=== PATIENT | male | born 1980 | race Caucasian/White ===

== ENCOUNTER 2020-11-25 17:25 | Inpatient (IN) | payer MEDICAID, SELFPAY ==
--- NOTE | 2020-11-25 | ECG_ITS ---
Test Reason : WEAKNESS Blood Pressure : / mmHG Vent. Rate : 095 BPM Atrial Rate : 095 BPM P-R Int : 156 ms QRS Dur : 094 ms QT Int : 348 ms P-R-T Axes : 065 -07 059 degrees QTc Int : 437 ms Normal sinus rhythm Moderate voltage criteria for LVH, may be normal variant Borderline ECG No previous ECGs available Referred By: Lis Thurman Electronically Signed By:MELANIE CLOUD MD
--- NOTE | ~2020-11-25 | CT_ITS ---
EXAM: Noncontrast CT scan of the head and cervical spine. INDICATION: Trauma COMPARISON: None TECHNIQUE: Axial slices were obtained from skull base to vertex and displayed. This was followed by helical, multislice, multidetector axial images from the occiput to the upper thorax. Coronal and sagittal reformats of the cervical spine in addition to coronal reformats of the head were obtained at the technologist workstation. DLP: 1103 mGy-cm FINDINGS: HEAD: There is no evidence of acute intracranial hemorrhage or territorial infarction. No abnormal mass effect or midline shift is appreciated. Torres-white differentiation is well preserved. No extra-axial fluid collections. The ventricular system and cortical sulci are normal in size. The osseous structures and soft tissues are normal. The visualized paranasal sinuses and mastoid air cells are well aerated. SPINE: The cervical spine is visualized in its entirety. There is straightening of the normal cervical lordosis. Alignment is otherwise unremarkable. Vertebral body heights are maintained. There is near complete osseous fusion of the C4 and C5 vertebral bodies. Disc spaces are otherwise well-maintained throughout the cervical spine. No prevertebral soft tissue swelling. CT/CT head/brain wo con IMPRESSION: 1. No acute intracranial pathology. 2. No fractures or dislocations of the cervical spine. This CT examination was performed using dose optimization techniques as appropriate, variously including the following: *Automated exposure control *Adjustment of mA and/or kV according to patient size (this includes techniques or standardized protocols for targeted exams where dose is matched to indication/reason for exam; i.e. extremities or head) *Use of iterative reconstruction technique
--- NOTE | ~2020-11-25 | US_ITS ---
EXAMINATION: ABDOMINAL DOPPLER EXAM CLINICAL INFORMATION: Abnormal liver function tests COMPARISON: Previous abdominal ultrasound from yesterday TECHNIQUE: Doppler color and grayscale evaluation of the liver vasculature FINDINGS: The main, right and left portal veins are patent. There is hepatofugal flow. The extrahepatic portal vein is not visualized. The splenic vein is patent. There is a large recanalized paraumbilical vein. The right, middle and left hepatic veins are patent and demonstrate normal waveforms. The IVC is patent. The main, right left hepatic arteries are patent. Main hepatic artery peak systolic velocity measures 249 cm/s which is slightly elevated. There is a small amount of ascites. The spleen is slightly enlarged measuring 13.2 cm in length. US/US duplex arterial venous comp IMPRESSION: Hepatofugal flow seen in the portal vein and large recanalized paraumbilical vein. The hepatic veins are patent.
--- NOTE | ~2020-11-25 | CT_ITS ---
EXAM: Noncontrast CT scan of the head and cervical spine. INDICATION: Trauma COMPARISON: None TECHNIQUE: Axial slices were obtained from skull base to vertex and displayed. This was followed by helical, multislice, multidetector axial images from the occiput to the upper thorax. Coronal and sagittal reformats of the cervical spine in addition to coronal reformats of the head were obtained at the technologist workstation. DLP: 1103 mGy-cm FINDINGS: HEAD: There is no evidence of acute intracranial hemorrhage or territorial infarction. No abnormal mass effect or midline shift is appreciated. Torres-white differentiation is well preserved. No extra-axial fluid collections. The ventricular system and cortical sulci are normal in size. The osseous structures and soft tissues are normal. The visualized paranasal sinuses and mastoid air cells are well aerated. SPINE: The cervical spine is visualized in its entirety. There is straightening of the normal cervical lordosis. Alignment is otherwise unremarkable. Vertebral body heights are maintained. There is near complete osseous fusion of the C4 and C5 vertebral bodies. Disc spaces are otherwise well-maintained throughout the cervical spine. No prevertebral soft tissue swelling. CT/CT cervical spine wo con IMPRESSION: 1. No acute intracranial pathology. 2. No fractures or dislocations of the cervical spine. This CT examination was performed using dose optimization techniques as appropriate, variously including the following: *Automated exposure control *Adjustment of mA and/or kV according to patient size (this includes techniques or standardized protocols for targeted exams where dose is matched to indication/reason for exam; i.e. extremities or head) *Use of iterative reconstruction technique
--- NOTE | ~2020-11-25 | US_ITS ---
EXAMINATION: US ABDOMEN COMPLETE CLINICAL INFORMATION: Liver failure. COMPARISON: Previous abdominal ultrasound November 2012 TECHNIQUE: Real-time imaging of the abdominal viscera. FINDINGS: PANCREAS: Not well visualized due to bowel gas. ABDOMINAL AORTA: The proximal, mid, and distal segments are normal in caliber. INFERIOR VENA CAVA: Visualized portions are normal. LIVER: Liver echotexture is increased and heterogeneous suggestive of hepatocellular disease. The contour of the liver is irregular or scalloped suggestive of cirrhosis.. No focal hepatic lesion. There is no intrahepatic biliary duct dilatation seen. There is reversed hepatofugal flow seen in the main portal vein and recanalized paraumbilical vein. GALLBLADDER: There are gallstones and sludge in the gallbladder. The gallbladder is normal in size. The gallbladder wall does not appear thickened. COMMON BILE DUCT: Normal in caliber measuring 0.7 cm in diameter. RIGHT KIDNEY: Normal. No hydronephrosis. No renal calculi or focal parenchymal lesions. The kidney measures 11.6 cm in maximum dimension. LEFT KIDNEY: Normal. No hydronephrosis. No renal calculi or focal parenchymal lesions. The kidney measures 13.2 cm in maximum dimension. SPLEEN: Slightly enlarged. The spleen measures 13.7 cm in maximum dimension. FREE FLUID: There is a moderate amount of ascites. US/US abdomen complete IMPRESSION: Cirrhotic-appearing liver. Reversed hepatofugal flow in the main portal vein. Mild splenomegaly. Moderate amount of ascites. Gallstones and sludge in the gallbladder. Nonvisualization of the pancreas.
--- NOTE | ~2020-11-25 | US_ITS ---
EXAMINATION: ULTRASOUND-GUIDED PARACENTESIS CLINICAL INFORMATION: Ascites COMPARISON: Previous ultrasound from earlier the same day TECHNIQUE: Procedure and received benefits including bleeding, infection and low blood pressure were discussed with the patient's mother by telephone and informed consent was obtained. The right lower quadrant was prepped and draped in the usual sterile fashion. The skin and soft tissues were anesthetized with 1% lidocaine plain. Using ultrasound guidance and a 5 Arabic rapid centesis catheter, access to the ascitic fluid was obtained. 2.3 L of dark clear yellow fluid was removed. Diagnostic specimen was sent. FINDINGS: There is a moderate amount of ascites. US/US paracentesis abd w/image IMPRESSION: Ultrasound-guided paracentesis.
[2020-11-25 17:54] VITALS: BP 165/79; PULSE 108; RESP 16; TEMP 36.8; O2SAT 95; BMI 26.6
[2020-11-25 21:55] VITALS: BP 140/94; PULSE 100; RESP 18; O2SAT 98
[2020-11-25 22:05] LABS: Basophils Percent Auto 0.5 % (0-2); Mean Corpuscular Volume 96.9 fL (80-98); Mean Platelet Volume 10.2 fL (9.4-12.4); PLT CLUMP 1; Red Cell Distribution Width 17.1 % (11.0-16.0); SCAN SMEAR FLAG 1
--- NOTE | 2020-11-25 22:05 | PC.NURSE ---
Pt from home, CAOx4, speaking full sentences. Pt reports a history of alcoholic cirrhosis, denies taking any prescription medications. Pt noted to be extremely jaundice to sclera and full body. Pt reports a fall @ home two weeks ago, states he fell out of bed in his sleep. Pt reports increased jaundice noted to eyes and full body x 2 weeks, pt also reports increased swelling to abdomen and legs, denies history of ascites or having abdomen drained. Pt reporting feeling foggy. States he is unable to get his thoughts out or speak clearly. Pt also reporting difficulty ambulating, states he has been unsteady on his feet. Pt reporting bright red blood in stool and blood in urine x 1 week, denies clots. Pt reports a history of ETOH, states he doesn't drink every day but had 3 drinks after lunch today. IV established, all labs obtained including BCXx2/lactic and Covid swab. EKG obtained by this RN. VSS at this time, awaiting primary MD solano. Call woods within reach, continue to monitor.
[2020-11-25 22:07] LABS: Basophils Absolute Auto 0.1 X10*3/uL (0.0-0.2); Eosinophils Absolute Auto 0.1 X10*3/uL (0.0-0.4); Hematocrit 31.2 % (42-52); Hemoglobin 11.6 g/dl (14.0-18.0); Imm Gran Abs Auto 0.08 X10*3/uL (0.00-0.03); Imm Gran Pct Auto 0.7 % (0.0-0.4); Lymphocytes Absolute Auto 1.7 X10*3/uL (1.2-4.9); Lymphocytes Percent Auto 14.9 % (20-40); Mean Corpuscular HGB Conc 37.2 g/dl (31.0-36.0); Monocytes Absolute Auto 1.4 X10*3/uL (0.1-1.2); Monocytes Percent Auto 12.4 % (2-11); Neutrophils Absolute Auto 7.8 X10*3/uL (2.0-8.3); Neutrophils Percent Auto 70.5 % (45-73); Platelet Count 119 X10*3/uL (160-400); Red Blood Count 3.22 X10*6/uL (4.60-5.80); White Blood Count 11.1 X10*3/uL (4.8-10.8)
[2020-11-25 22:08] LABS: MANUAL DIFF FLAG NO
[2020-11-25 22:23] LABS: Lactic Acid 1.5 mmol/L (0.5-2.0)
[2020-11-25 22:24] LABS: Alanine Aminotransferase 44 U/L (0-40); Albumin Level 2.5 g/dL (3.5-5.0); Alkaline Phosphatase 201 U/L (39-117); Anion Gap 14 (12-20); Aspartate Amino Transferase 167 U/L (5-37); Blood Urea Nitrogen 7 mg/dL (9-16); Calcium 7.9 mg/dL (8.4-10.2); Carbon Dioxide 22 mmol/L (22-29); Chloride 89 mmol/L (96-108); Creatinine Clr Calc Pharmacy 105.2; Estimated Glomerular Filt Rate > 60; Glucose Random 98 mg/dL (60-115); Potassium 3.3 mmol/L (3.3-5.1); Sodium 122 mmol/L (135-145); Total Protein 7.6 g/dL (6.5-8.0)
[2020-11-25 22:32] LABS: Ethanol 31 mg/dL
[2020-11-25 22:39] LABS: INTERNATIONAL NORM RATIO 2.1 (0.9-1.1); Prothrombin Time 24.9 SEC (10.8-13.0)
--- NOTE | 2020-11-25 22:40 | PC.NURSE ---
at bedside for primary eval.
--- NOTE | 2020-11-25 22:46 | PC.NURSE ---
OBS obtained by and sent by this RN. Pt aware of plan to admit to facility. Awaiting CT.
[2020-11-25 22:47] LABS: Ammonia 66 umol/L (13-55); Bilirubin Direct 19.4 mg/dL (0.0-0.5); Bilirubin Total 31.2 mg/dL (0.0-1.0)
--- NOTE | 2020-11-25 22:51 | ED_ITS ---
HPI - General Adult General Chief complaint: General Medical Stated complaint: mutiple complaints Time Seen by Provider: 11/25/20 21:56 History of Present Illness HPI narrative: Patient is a 40-year-old male with a long history of alcohol abuse. Noticed himself to be generally weaker than usual. Patient feels lightheaded. Patient may have fallen. Patient drinks on a daily basis. No history of hepatitis. No history of Tylenol ingestion. Noticed himself to be yellowed. Also noticed himself to be weak. Noticed his legs to be swollen. Noticed his abdomen to be distended. Came to the emergency department is currently tolerating p.o.. No dominant surgery in the past. No cough no congestion or upper respiratory symptoms. No diaphoresis. Related Data Home Medications Medication Instructions Recorded Confirmed No Known Home Meds 11/25/20 11/25/20 Allergies Allergy/AdvReac Type Severity Reaction Status Date / Time Penicillins Allergy Swelling Verified 11/25/20 17:54 Review of Systems Review of Systems: Constitutional: No Weight loss, No Fever, No Chills, No Night Sweats, No Fatigue, No Malaise ENT/Mouth: No Hearing loss, No Ear Pain, No Nasal Congestion, No Sinus Pain, No Hoarseness, No sore throat, No Rhinorrhea, No Swallowing Difficulty Eyes: No Eye Pain, No Swelling, No Redness, No Foreign Body, No Discharge, No Vision Changes Cardiovascular: No Chest Pain, No SOB, No Dyspnea on Exertion, No Orthopnea, No Edema, No Palpitations Respiratory: No Cough, No Sputum, No Wheezing, No Smoke Exposure, No Dyspnea Gastrointestinal: No Nausea, No Vomiting, No Diarrhea, No Constipation, No abdominal Pain, No Hematochezia, No Melena Genitourinary: no irregular bleeding, No Dysuria, No Urinary Frequency, No Hematuria, No Urinary Incontinence, No Urgency, No Flank Pain, No Urinary Flow Changes, No Hesitancy Musculoskeletal: No joint pain, No Myalgias, No Joint Swelling Skin: Positive yellow skin Neuro: Positive Weakness, No Numbness, No Paresthesias, No Loss of Conscious ness, positive Dizziness, No Headache Psych: No Anxiety/Panic, No Depression, No SI/HI/AH/VH, No Social Issues, Heme/Lymph: No Bruising, No Bleeding,No Lymphadenopathy Endocrine: No Polyuria, No Polydipsia, No Temperature Intolerance [facility] Past Medical History Medical History Liver cirrhosis Social History Social History Advance Directives: No Advance Directives Information Provided: Yes Physical Exam Vital Signs: Vital Signs: Last Vital Signs Temp 98.2 F 11/25/20 17:54 Pulse 89 11/26/20 00:31 Resp 16 11/26/20 00:31 BP 130/73 11/26/20 00:31 Pulse Ox 96 11/26/20 00:31 Body Mass Index 26.6 Appearance: Alert. Oriented X3. No acute distress. Eyes: Pupils equal, round and reactive to light. Positive jaundice noted ENT: Pharynx normal. Neck: Normal inspection. Neck supple. No lymph nodes noted. No crepitus CVS: Normal heart rate and rhythm. Pulses normal. Normal S1 and S2 Respiratory: No respiratory distress. Breath sounds normal. No Wheezing. No rales Abdomen: Distended abdomen. Nontender to touch, positive bowel sounds in all 4 quadrants Skin: Positive jaundice noted Extremities: Positive lower extremity edema. Neurovascular intact to all extremities. No Lacerations. No Rash Neuro: Oriented X 3. No motor deficit. No sensory deficit. Moving all extermities. No slurred speech Medical Decision Making MDM Narrative Medical decision making narrative: Patient appears to have gross liver failure likely secondary to alcohol abuse. Will get CT scan of the head as patient qu estionably hit his head last week. Will check Tylenol and also hepatitis panel. Will require admission for further evaluation for likely liver failure. Currently in stable condition. Patient's bilirubin came back to be 30 pulmonary hepatic failure. Likely related to alcohol. Tylenol levels negative hepatitis panel is pending. Will require admission to the hospital. Will discuss case with GI. Case discussed with GI agree with plan of admission. Currently in stable condition. Lab Data Result diagrams: 11/25/20 21:52 11/25/20 21:52 Labs: Lab Results 11/25/20 11/25/20 11/25/20 Range/Units 21:52 21:52 21:52 WBC 11.1 H (4.8-10.8) X10*3/uL RBC 3.22 L (4.60-5.80) X10*6/uL Hgb 11.6 L (14.0-18.0) g/dl Hct 31.2 L (42-52) % MCV 96.9 (80-98) fL MCH 36.0 H (27.0-33.0) pg MCHC 37.2 H (31.0-36.0) g/dl RDW 17.1 H (11.0-16.0) % Plt Count 119 L (160-400) X10*3/uL MPV 10.2 (9.4-12.4) fL Immature Gran % (Auto) 0.7 H (0.0-0.4) % Neut % (Auto) 70.5 (45-73) % Lymph % (Auto) 14.9 L (20-40) % Chester % (Auto) 12.4 H (2-11) % Eos % (Auto) 1.0 (0-4) % Baso % (Auto) 0.5 (0-2) % Lymph # (Auto) 1.7 (1.2-4.9) X10*3/uL Chester # (Auto) 1.4 H (0.1-1.2) X10*3/uL Eos # (Auto) 0.1 (0.0-0.4) X10*3/uL Baso # (Auto) 0.1 (0.0-0.2) X10*3/uL Abs Immat Gran (auto) 0.08 H (0.00-0.03) X10*3/uL Absolute Neuts (auto) 7.8 (2.0-8.3) X10*3/uL Absolute Nucleated RBC 0.000 (0.0-0.012) X10*3/uL Nucleated RBC % (auto) 0.0 (0.0-0.2) /100WBC PT (10.8-13.0) SEC INR (0.9-1.1) Hold Blue Top Sodium (135-145) mmol/L Potassium (3.3-5.1) mmol/L Chloride (96-108) mmol/L Carbon Dioxide (22-29) mmol/L Anion Gap (12-20) BUN (9-16) mg/dL Creatinine (0.5-1.4) mg/dL Estim Creat Clear Calc Estimated GFR Random Glucose (60-115) mg/dL Lactic Acid 1.5 (0.5-2.0) mmol/L Calcium (8.4-10.2) mg/dL Total Bilirubin (0.0-1.0) mg/dL Direct Bilirubin (0.0-0.5) mg/dL AST (5-37) U/L ALT (0-40) U/L Alkaline Phosphatase (39-117) U/L Ammonia 66 H (13-55) umol/L Total Protein (6.5-8.0) g/dL Albumin (3.5-5.0) g/dL Stool Occult Blood (NEGATIVE) Acetaminophen (<30) mcg/mL Ethyl Alcohol mg/dL COVID-19 ([facility]) (Negative) COVID-19 Clin Com 11/25/20 11/25/20 11/25/20 Range/Units 21:52 21:52 21:52 WBC (4.8-10.8) X10*3/uL RBC (4.60-5.80) X10*6/uL Hgb (14.0-18.0) g/dl Hct (42-52) % MCV (80-98) fL MCH (27.0-33.0) pg MCHC (31.0-36.0) g/dl RDW (11.0-16.0) % Plt Count (160-400) X10*3/uL MPV (9.4-12.4) fL Immature Gran % (Auto) (0.0-0.4) % Neut % (Auto) (45-73) % Lymph % (Auto) (20-40) % Chester % (Auto) (2-11) % Eos % (Auto) (0-4) % Baso % (Auto) (0-2) % Lymph # (Auto) (1.2-4.9) X10*3/uL Chester # (Auto) (0.1-1.2) X10*3/uL Eos # (Auto) (0.0-0.4) X10*3/uL Baso # (Auto) (0.0-0.2) X10*3/uL Abs Immat Gran (auto) (0.00-0.03) X10*3/uL Absolute Neuts (auto) (2.0-8.3) X10*3/uL Absolute Nucleated RBC (0.0-0.012) X10*3/uL Nucleated RBC % (auto) (0.0-0.2) /100WBC PT 24.9 H (10.8-13.0) SEC INR 2.1 H (0.9-1.1) Hold Blue Top SEE NOTE Sodium 122 L (135-145) mmol/L Potassium 3.3 (3.3-5.1) mmol/L Chloride 89 L (96-108) mmol/L Carbon Dioxide 22 (22-29) mmol/L Anion Gap 14 (12-20) BUN 7 L (9-16) mg/dL Creatinine 0.89 (0.5-1.4) mg/dL Estim Creat Clear Calc 105.2 Estimated GFR > 60 Random Glucose 98 (60-115) mg/dL Lactic Acid (0.5-2.0) mmol/L Calcium 7.9 L (8.4-10.2) mg/dL Total Bilirubin 31.2 H (0.0-1.0) mg/dL Direct Bilirubin 19.4 H (0.0-0.5) mg/dL AST 167 H (5-37) U/L ALT 44 H (0-40) U/L Alkaline Phosphatase 201 H (39-117) U/L Ammonia (13-55) umol/L Total Protein 7.6 (6.5-8.0) g/dL Albumin 2.5 L (3.5-5.0) g/dL Stool Occult Blood (NEGATIVE) Acetaminophen < 1 (<30) mcg/mL Ethyl Alcohol 31 mg/dL COVID-19 ([facility]) (Negative) COVID-19 Clin Com 11/25/20 11/25/20 Range/Units 22:11 22:46 WBC (4.8-10.8) X10*3/uL RBC (4.60-5.80) X10*6/uL Hgb (14.0-18.0) g/dl Hct (42-52) % MCV (80-98) fL MCH (27.0-33.0) pg MCHC (31.0-36.0) g/dl RDW (11.0-16.0) % Plt Count (160-400) X10*3/uL MPV (9.4-12.4) fL Immature Gran % (Auto) (0.0-0.4) % Neut % (Auto) (45-73) % Lymph % (Auto) (20-40) % Chester % (Auto) (2-11) % Eos % (Auto) (0-4) % Baso % (Auto) (0-2) % Lymph # (Auto) (1.2-4.9) X10*3/uL Chester # (Auto) (0.1-1.2) X10*3/uL Eos # (Auto) (0.0-0.4) X10*3/uL Baso # (Auto) (0.0-0.2) X10*3/uL Abs Immat Gran (auto) (0.00-0.03) X10*3/uL Absolute Neuts (auto) (2.0-8.3) X10*3/uL Absolute Nucleated RBC (0.0-0.012) X10*3/uL Nucleated RBC % (auto) (0.0-0.2) /100WBC PT (10.8-13.0) SEC INR (0.9-1.1) Hold Blue Top Sodium (135-145) mmol/L Potassium (3.3-5.1) mmol/L Chloride (96-108) mmol/L Carbon Dioxide (22-29) mmol/L Anion Gap (12-20) BUN (9-16) mg/dL Creatinine (0.5-1.4) mg/dL Estim Creat Clear Calc Estimated GFR Random Glucose (60-115) mg/dL Lactic Acid (0.5-2.0) mmol/L Calcium (8.4-10.2) mg/dL Total Bilirubin (0.0-1.0) mg/dL Direct Bilirubin (0.0-0.5) mg/dL AST (5-37) U/L ALT (0-40) U/L Alkaline Phosphatase (39-117) U/L Ammonia (13-55) umol/L Total Protein (6.5-8.0) g/dL Albumin (3.5-5.0) g/dL Stool Occult Blood NEGATIVE (NEGATIVE) Acetaminophen (<30) mcg/mL Ethyl Alcohol mg/dL COVID-19 ([facility]) Negative (Negative) COVID-19 Clin Com See Note Critical Care Time Critical Care Time Total Critical Care Time: 40 Attestation: I have personally provided 40 minutes of critical care time exclusive of time spent on separately billable procedures. Time includes review of lab data, radiology results, discussion with consultants, and monitoring for potential decompensation. Interventions were performed as documented above Discharge Plan Discharge Clinical Impression: Acute liver failure Patient Disposition: Admitted As Inpatient
[2020-11-25 23:10] LABS: OBS Int Ctl Valid YES; OBS1 NEGATIVE (NEGATIVE)
[2020-11-25 23:15] LABS: Acetaminophen LAB < 1 mcg/mL (<30)
[2020-11-25 23:21] LABS: COVID-19 Test Negative (Negative)
--- NOTE | 2020-11-25 23:30 | PC.NURSE ---
Pt returns from CT on hospital bed without incident.
[2020-11-26] VITALS (9 sets, daily range): BP systolic 99–142; BP diastolic 60–76; PULSE 75–102; RESP 16–18; TEMP 36.3–37.1; O2SAT 95–100
--- NOTE | 2020-11-26 02:53 | PC.NURSE ---
WORSHIP PASTOR NOTICED INCREASED TREMORS NOTED WHILE BEING MOVED TO COMMODE. [facility] CONTACTED DUE TO CONCERNS ABOUT ETOH WITHDRAWAL. PER HOSPITALIST PLAN TO START PHENOBARBITOL PROTOCOL.
[2020-11-26] MEDS: Lactulose 20 GM/30 ML SOLUTION 30 GM PO ×2 (03:29→08:18)
[2020-11-26] MEDS: PHENobarbitaL sodium 130 MG/ML VIAL 265 MG IM (03:30)
[2020-11-26 04:29] LABS: ~HepC Num1 0.48 S/CO (0.00-0.79); ~Hepatitis C Antibody Nonreactive (Nonreactive)
--- NOTE | 2020-11-26 04:32 | PC.NURSE ---
PT ASSISTED TO BEDSIDE COMMODE, HAS SMALL AMOUNT OF LIQUID BROWN STOOL.
[2020-11-26 04:36] LABS: HBS Num1 301.01 mIU/mL (0-7.99); HBsAGNum1 0.48 S/CO (0.00-0.99); Hepatitis B Surface Antigen Negative (Negative); ~Hepatitis B Surface Antibody REACTIVE (Nonreactive)
[2020-11-26 05:25] LABS: HBc Num1 1.98 S/CO (0.00-0.79); HBc Num2 1.96 S/CO; HBc Num3 2.11 S/CO; Hepatitis B Core Antibody Reactive (Nonreactive)
--- NOTE | 2020-11-26 06:16 | PM.IMHP ---
History of Present Illness Date of Service: 11/26/20 Chief Complaint: Skin changes This is a 40-year-old male with past medical history of alcohol abuse who presents to the hospital stating that he has noticed skin changes as well as generalized fatigue and malaise. He reports that his mother noticed him turning yellow about 2 weeks ago but he did not notice therefore he had noted at until he started noticing it about 2-3 days ago. He is also complaining of generalized weakness with no other complaint. He denies any headache or change in vision, no chest pain, no shortness of breath, abdominal pain nausea or vomiting, he reports constipation with no diarrhea, no urinary symptoms. He has significant lower extremity edema that he has noticed for about 2-3 weeks. All other review of system negative except as mentioned On arrival to the ED labs are significant for a temp of 98.2?, heart rate of 108, respiratory rate of 16, blood pressure 165/79, satting 95% on room air. Labs are significant for WBC count of 11.1, hemoglobin of 11.6, hematocrit of 31.2, platelet count of 119, PT of 24.9, INR of 2.1, sodium of 122, chloride of 89, BUN of 7, creatinine of 0.89, total bili of 31.2, direct bili of 19.4, AST of 167, ALT of 44, alk-phos of 201, ammonia of 66, albumin of 2.5, COVID-19 negative, Tylenol level less than 1, alcohol level positive, hepatitis panel pending, Head as well as cervical spine CT showing no acute intracranial pathology or fracture with dislocation of the cervical spine. Past medical history as below confirm with patient Review of Systems Review of Systems: Yes all other systems are reviewed and are negative [facility] Medical History (Updated 11/26/20 @ 06:27 by Yanni Bird MD) Liver cirrhosis Social History Advance Directives: No Advance Directives Information Provided: Yes Meds Allergies Allergy/AdvReac Type Severity Reaction Status Date / Time Penicillins Allergy Swelling Verified 11/25/20 17:54 Active Medications: Current Medications Generic Name Dose Route Start Last Admin Trade Name Freq PRN Reason Stop Dose Admin Docusate Sodium 100 mg 11/26/20 02:42 Docusate Sodium 100 Mg Capsule PO DAILY PRN Constipation Lactulose 30 gm 11/26/20 02:42 11/26/20 03:29 Lactulose 20 Gm/30 Ml Solution PO 30 gm TID REPLACED BY [facility] Administration Medication 1 each 11/26/20 09:00 No Benzodiazepines MISCELLANE DAILY REPLACED BY [facility] Ondansetron HCl 4 mg 11/26/20 02:42 Ondansetron Hcl 4 Mg/2 Ml Vial IVPUSH Q8H PRN Nausea and Vomiting Pharmacy Consult 1 each 11/26/20 00:34 Consult Rx Perform Med Rec MISCELLANE ONCE PRN Consult order Phenobarbital Sodium 198 mg 11/26/20 06:15 Phenobarbital Sodium 130 Mg/Ml Vial IM 11/26/20 09:16 Q3H REPLACED BY [facility] Sodium Chloride 3 ml 11/26/20 08:00 0.9 % Sodium Chloride Flush 3 Ml Syringe IVFLUSH QSHIFT REPLACED BY [facility] Home Medications Medication Instructions Recorded Confirmed Last Taken Type No Known Home Meds 11/25/20 11/25/20 Unknown History Physical Exam Vital Signs and Narrative: Vital Signs: Last Vital Signs Temp 98.3 F 11/26/20 02:42 Pulse 102 H 11/26/20 02:42 Resp 16 11/26/20 02:42 BP 133/73 11/26/20 02:42 Pulse Ox 98 11/26/20 02:42 Body Mass Index 26.6 Const: General: cooperative and no acute distress Orientation/consciousness: patient oriented x3 Eyes: General: appearance normal, both eyes and all related structures Resp: Effort & Inspection: normal respiratory effort and able to speak in complete sentences Cardio: Rate: regular rate Rhythm: regular rhythm GI: Palpation (GI): Soft to palpation Auscultation: normal bowel sounds Skin: Other: Jaundice Neuro: General: patient oriented x3 Cognition (Neuro): normal cognition Extrem: Other: 3+ pedal edema bilaterally Results Labs CBC and Chem 7: 11/25/20 21:52 11/25/20 21:52 Labs: Laboratory Results - last 24 hr 11/25/20 11/25/20 11/25/20 21:52 21:52 21:52 MCV 96.9 MCH 36.0 H MCHC 37.2 H RDW 17.1 H Plt Count 119 L MPV 10.2 Immature Gran % (Auto) 0.7 H Neut % (Auto) 70.5 Lymph % (Auto) 14.9 L [place] % (Auto) 12.4 H Eos % (Auto) 1.0 Baso % (Auto) 0.5 Lymph # (Auto) 1.7 [place] # (Auto) 1.4 H Eos # (Auto) 0.1 Baso # (Auto) 0.1 Abs Immat Gran (auto) 0.08 H Absolute Neuts (auto) 7.8 Absolute Nucleated RBC 0.000 Nucleated RBC % (auto) 0.0 PT INR Hold Blue Top Anion Gap Estim Creat Clear Calc Estimated GFR Random Glucose Lactic Acid 1.5 Calcium Total Bilirubin Direct Bilirubin AST ALT Alkaline Phosphatase Ammonia 66 H Total Protein Albumin Stool Occult Blood Acetaminophen Ethyl Alcohol COVID-19 ([facility]) COVID-19 Clin Com Hep Bs Antigen Hep Bs Antibody Hep B Core Total Ab Hep B Core IgM Ab Hepatitis C Ab (EIA) 11/25/20 11/25/20 11/25/20 21:52 21:52 21:52 MCV MCH MCHC RDW Plt Count MPV Immature Gran % (Auto) Neut % (Auto) Lymph % (Auto) [place] % (Auto) Eos % (Auto) Baso % (Auto) Lymph # (Auto) [place] # (Auto) Eos # (Auto) Baso # (Auto) Abs Immat Gran (auto) Absolute Neuts (auto) Absolute Nucleated RBC Nucleated RBC % (auto) PT 24.9 H INR 2.1 H Hold Blue Top SEE NOTE Anion Gap 14 Estim Creat Clear Calc 105.2 Estimated GFR > 60 Random Glucose 98 Lactic Acid Calcium 7.9 L Total Bilirubin 31.2 H Direct Bilirubin 19.4 H AST 167 H ALT 44 H Alkaline Phosphatase 201 H Ammonia Total Protein 7.6 Albumin 2.5 L Stool Occult Blood Acetaminophen < 1 Ethyl Alcohol 31 COVID-19 ([facility]TI) COVID-19 Clin Com Hep Bs Antigen Hep Bs Antibody Hep B Core Total Ab Hep B Core IgM Ab Hepatitis C Ab (EIA) 11/25/20 11/25/20 11/25/20 21:52 22:11 22:46 MCV MCH MCHC RDW Plt Count MPV Immature Gran % (Auto) Neut % (Auto) Lymph % (Auto) [place] % (Auto) Eos % (Auto) Baso % (Auto) Lymph # (Auto) [place] # (Auto) Eos # (Auto) Baso # (Auto) Abs Immat Gran (auto) Absolute Neuts (auto) Absolute Nucleated RBC Nucleated RBC % (auto) PT INR Hold Blue Top Anion Gap Estim Creat Clear Calc Estimated GFR Random Glucose Lactic Acid Calcium Total Bilirubin Direct Bilirubin AST ALT Alkaline Phosphatase Ammonia Total Protein Albumin Stool Occult Blood NEGATIVE Acetaminophen Ethyl Alcohol COVID-19 ([facility]TI) Negative COVID-19 Clin Com See Note Hep Bs Antigen Negative Hep Bs Antibody REACTIVE Hep B Core Total Ab Reactive Hep B Core IgM Ab Cancelled Hepatitis C Ab (EIA) Nonreactive Imaging Radiologist's Impressions: Impressions Cervical Spine CT 11/25/20 22:51 IMPRESSION: 1. No acute intracranial pathology. 2. No fractures or dislocations of the cervical spine. This CT examination was performed using dose optimization techniques as appropriate, variously including the following: *Automated exposure control *Adjustment of mA and/or kV according to patient size (this includes techniques or standardized protocols for targeted exams where dose is matched to indication/reason for exam; i.e. extremities or head) *Use of iterative reconstruction technique Head CT 11/25/20 22:51 IMPRESSION: 1. No acute intracranial pathology. 2. No fractures or dislocations of the cervical spine. This CT examination was performed using dose optimization techniques as appropriate, variously including the following: *Automated exposure control *Adjustment of mA and/or kV according to patient size (this includes techniques or standardized protocols for targeted exams where dose is matched to indication/reason for exam; i.e. extremities or head) *Use of iterative reconstruction technique Assessment and Plan (1) Jaundice: Status: Acute (2) Acute liver failure: Qualifiers: Hepatic coma status: without hepatic coma Qualified Code(s): K72.00 - Acute and subacute hepatic failure without coma Status: Acute (3) Alcohol abuse: Status: Acute (4) Hyperbilirubinemia: Status: Acute (5) Hyperammonemia: Status: Acute This is a 40-year-old male with history of alcohol abuse who presents to the hospital no skin changes in generalized malaise found to have elevated bili # acute liver failure - secondary to alcohol abuse - hepatitis panel pending - has significantly elevated bili as well as mild ALT and AST elevation, - has hyperammonemia - will start patient on lactulose, consult GI - abdominal ultrasound to evaluate the liver as well as surrounding tissue and organs # jaundice - secondary to hyperbilirubinemia in the setting of acute liver failure - has bilirubin of 31 with no previous for comparison - uses alcohol daily - abdominal ultrasound, GI consult # alcohol abuse with potential for withdrawal - uses about 6-8 beers daily - in withdrawal while in the ED - will start him on phenobarb cortical - thiamine and folic acid supplement # hyperbilirubinemia - secondary to above - follow LFTs # hyperammonemia - secondary to acute liver failure - lactulose 30 mg t.i.d. with a goal of 3-4 BMs daily DVT prophylaxis: has elevated INR, SCDs
[2020-11-26] MEDS: PHENobarbitaL sodium 130 MG/ML VIAL 198 MG IM (06:51)
[2020-11-26 06:58] LABS: Glucose Urine UA 100 MG/DL (NEG); Leukocyte Esterase Urine NEG (NEG); Nitrite Urine NEG (NEG); PH 6.5 (5.0-8.0); Urine Blood TRACE (NEG); Urine Ketones 15 MG/DL (NEG); Urine Protein TRACE MG/DL (NEG-TRACE)
[2020-11-26 07:23] LABS: Amphetamine Screen Urine Not Detected (Not Detect); Barbiturates, Urine POSITIVE (Not Detect); Benzodiazepines Screen Urine Not Detected (Not Detect); Cannabinoid Screen Urine Not Detected (Not Detect); Cocaine Screen Urine Not Detected (Not Detect); Opiate Screen Urine Not Detected (Not Detect); Phencyclidine Screen Urine Not Detected (Not Detect)
[2020-11-26 07:32] LABS: Appearance Urine CLOUDY; Color Urine BROWN
[2020-11-26 07:33] LABS: Bacteria Urine 1+ /LPF; RBC Urine 0-2 /HPF (0); Renal Epithelial Cells Urine 1+ /LPF; Squamous Epithelial Cell Urine 1+ /LPF; WBC Urine 0 /HPF (0-4)
[2020-11-26 07:34] LABS: Amorphous Sediment Urine 1+ /LPF
[2020-11-26 07:37] LABS: Epith (RTE) Cast 0-2 /LPF
[2020-11-26] MEDS: 0.9 % Sodium Chloride Flush 3 ML SYRINGE IVFLUSH ×3 (08:15→23:46)
[2020-11-26] MEDS: Folic Acid 1 MG TABLET PO (08:18)
[2020-11-26] MEDS: Thiamine HCL 100 MG TABLET PO (08:18)
--- NOTE | 2020-11-26 08:38 | P.CNGI_ITS ---
History of Present Illness Data of Consult Service Date: 11/26/20 Requesting physician: Yanni Bird Primary Care Provider: None Physician HPI Reason for consult: jaundice 40-year-old male with past medical history of alcohol abuse who I am asked to see for assessment for jaundice. He and his family noted he was turning yellow 2 weeks ago, prior to this he had been gaining weight for few months and his belly was getting bigger. He is also complaining of generalized weakness with no other complaint as well as ankle swelling. He denies any headache or change in vision, no chest pain, no shortness of breath, abdominal pain nausea or vomiting. he reports constipation with no diarrhea, no urinary symptoms. he said his stool is tar colored. denies taking nsaids, tylenol or illicit drugs, he is ex smoker Has been drinking anywhere from 2-15 beers a day, had spell of detox in past w ith partial success. never had DUI or alcohol withdrawal. FHx: no FH of liver disease On arrival to the ED: temp of 98.2?, heart rate of 108, respiratory rate of 16, blood pressure 165/79, satting 95% on room air. Labs: WBC count of 11.1, hemoglobin of 11.6, hematocrit of 31.2, platelet count of 119, PT of 24.9, INR of 2.1, sodium of 122, chloride of 89, BUN of 7, creatinine of 0.89, total bili of 31.2, direct bili of 19.4, AST of 167, ALT of 44, alk-phos of 201, ammonia of 66, albumin of 2.5, COVID-19 negative, Tylenol level less than 1, alcohol level positive, hepatitis panel pending. Imaging: Head/cervical spine CT: no acute intracranial pathology or fracture Review of Systems Review of Systems: Constitutional: No Weight loss, No Fever, No Chills, No Night Sweats, No Fatigue, No Malaise ENT/Mouth: No Hearing loss, No Ear Pain, No Nasal Congestion, No Sinus Pain, No Hoarseness, No sore throat, No Rhinorrhea, No Swallowing Difficulty Eyes: No Eye Pain, No Swelling, No Redness, No Foreign Body, No Discharge, No Vision Changes Cardiovascular: No Chest Pain, No SOB, No Dyspnea on Exertion, No Orthopnea, No Edema, No Palpitations Respiratory: No Cough, No Sputum, No Wheezing, No Smoke Exposure, No Dyspnea Gastrointestinal: No Nausea, No Vomiting, No Diarrhea, No Constipation, No abd ominal Pain, No Hematochezia, No Melena Genitourinary: no irregular bleeding, No Dysuria, No Urinary Frequency, No Hematuria, No Urinary Incontinence, No Urgency, No Flank Pain, No Urinary Flow Changes, No Hesitancy Musculoskeletal: No joint pain, No Myalgias, No Joint Swelling Skin: Positive yellow skin Neuro: Positive Weakness, No Numbness, No Paresthesias, No Loss of Consciousness, positive Dizziness, No Headache Psych: No Anxiety/Panic, No Depression, No SI/HI/AH/VH, No Social Issues, Heme/Lymph: No Bruising, No Bleeding,No Lymphadenopathy Endocrine: No Polyuria, No Polydipsia, No Temperature Intolerance Yes all other systems are reviewed and are negative [facility] Past Medical History Medical History Liver cirrhosis Social History Social History Advance Directives: No Advance Directives Information Provided: Yes Meds Allergies Allergy/AdvReac Type Severity Reaction Status Date / Time Penicillins Allergy Swelling Verified 11/25/20 17:54 Active Medications: Current Medications Generic Name Dose Route Start Last Admin Trade Name Freq PRN Reason Stop Dose Admin Docusate Sodium 100 mg 11/26/20 02:42 Docusate Sodium 100 Mg Capsule PO DAILY PRN Constipation Folic Acid 1 mg 11/26/20 09:00 11/26/20 08:18 Folic Acid 1 Mg Tablet PO 1 mg DAILY KURT Administration Lactulose 30 gm 11/26/20 02:42 11/26/20 08:18 Lactulose 20 Gm/30 Ml Solution PO 30 gm TID KURT Administration Medication 1 each 11/26/20 09:00 No Benzodiazepines MISCELLANE DAILY KURT Ondansetron HCl 4 mg 11/26/20 02:42 Ondansetron Hcl 4 Mg/2 Ml Vial IVPUSH Q8H PRN Nausea and Vomiting Pharmacy Consult 1 each 11/26/20 00:34 Consult Rx Perform Med Rec MISCELLANE ONCE PRN Consult order Sodium Chloride 3 ml 11/26/20 08:00 11/26/20 08:15 0.9 % Sodium Chloride Flush 3 Ml Syringe IVFLUSH 3 ml QSHIFT KURT Administration Thiamine HCl 100 mg 11/26/20 09:00 11/26/20 08:18 Thiamine Hcl 100 Mg Tablet PO 100 mg DAILY KURT Administration Home Medications Medication Instructions Recorded Confirmed Last Taken Type No Known Home Meds 11/25/20 11/25/20 Unknown History Physical Exam Vital Signs: Vital Signs: Last Vital Signs Temp 98.3 F 11/26/20 02:42 Pulse 102 H 11/26/20 02:42 Resp 16 11/26/20 02:42 BP 133/73 11/26/20 02:42 Pulse Ox 98 11/26/20 02:42 Body Mass Index 26.6 Const: General: cooperative and no acute distress Orientation/c onsciousness: patient oriented x3 Eyes: General: appearance normal, both eyes and all related structures Resp: Effort & Inspection: normal respiratory effort and able to speak in c omplete sentences Cardio: Rate: regular rate Rhythm: regular rhythm GI: Palpation (GI): Firmness to palpation present (GI) and nontender Percussion: Yes dullness to percussion and Yes Fluid wave present Auscultation: normal bowel sounds Skin: Other: Jaundice Neuro: General: patient oriented x3 Cognition (Neuro): normal cognition Extrem: Other: 3+ pedal edema bilaterally Results Labs CBC & Chem 7: 11/26/20 09:12 11/26/20 09:12 Labs: Short CBC 11/25/20 Range/Units 21:52 WBC 11.1 H (4.8-10.8) X10*3/uL Hgb 11.6 L (14.0-18.0) g/dl Hct 31.2 L (42-52) % Plt Count 119 L (160-400) X10*3/uL BMP 11/25/20 21:52 Sodium 122 L Potassium 3.3 Chloride 89 L Carbon Dioxide 22 BUN 7 L Creatinine 0.89 Calcium 7.9 L Liver Function 11/25/20 Range/Units 21:52 Total Bilirubin 31.2 H (0.0-1.0) mg/dL Direct Bilirubin 19.4 H (0.0-0.5) mg/dL AST 167 H (5-37) U/L ALT 44 H (0-40) U/L Alkaline Phosphatase 201 H (39-117) U/L Albumin 2.5 L (3.5-5.0) g/dL Urine 11/26/20 Range/Units 06:46 Urine Color BROWN Urine Appearance CLOUDY Urine pH 6.5 (5.0-8.0) Ur Specific [place] 1.010 (1.005-1.025) Urine Protein TRACE (NEG-TRACE) MG/DL Urine Glucose (UA) 100 H (NEG) MG/DL Assessment and Plan (1) Acute liver failure: Qualifiers: Hepatic coma status: without hepatic coma Qualified Code(s): K72.00 - Acute and subacute hepatic failure without coma Status: Acute (2) Alcohol abuse: Status: Acute (3) Jaundice: Status: Acute 1/ Suspected Acute alcoholic hepatitis , MDF is 95 2/ ascites, needs tap to determine SAAG and r/o SBP 3/ sarcopenia related to 1/ above, albumin low 4/ describes melena and dark stools PLAN: 1/ Check labs for secondary causes of liver disease e.g AIH, hemachromatosis, viral liver disease etc 2/ monitor and trend HGB--if conts to drift down and melena objectively confirmed then may need EGD 3/ if ascitic fluid tap neg for SBP then pred 40 mg and then check Lille score at 7 days -- steroids associated with improved outcomes at 28 d not necessarily at 90 days 4/ high protein and calorie diet may be the most beneficial thing in breaking the inflammatory cycle- 1-1.5 g/kg protein and 30-40 kcal/kg body weight--good outcomes at 1 yr 5/ 10 mg vit K IV for 3 d and see if INR comes down 6/ check zinc level and replace if low 7/ mutlivitamins and CIWA scoring 8/ hold diuretics for the meantime, maintain on low sodium diet, avoid nsaids--current low Na prob due to beer potomania overall prognosis is guarded--if deteriorates then consider liver transplant referral, but right now he is AAO x 3 and stable References; Nemesio MR, Carlos P, Laurel M, et al. Prednisolone or pentoxifylline for alcoholic hepatitis. N Engl J Med 2015; 372: 1619? 1628. Cabr? E, Rodr?Lory P, Michael?rei Regalado, Sofía FRANCINE, S?Yakov?rei MANDUJANO, Wests A, Leonidas M, Broderick R, Adan TO. Short- and long-term outcome of severe alcohol- induced hepatitis treated with steroids or enteral nutrition: a multicenter randomized trial. Hepatology. 2000;32:36-42.
[2020-11-26 09:25] LABS: INTERNATIONAL NORM RATIO 2.2 (0.9-1.1); Prothrombin Time 26.4 SEC (10.8-13.0)
[2020-11-26 09:44] LABS: Lymphocytes Absolute Auto 1.2 X10*3/uL (1.2-4.9); MANUAL DIFF FLAG SCAN; PLT CLUMP 1; Red Cell Distribution Width 16.9 % (11.0-16.0); SCAN SMEAR FLAG 1
[2020-11-26 09:46] LABS: Basophils Percent Auto 0.4 % (0-2); Eosinophils Absolute Auto 0.1 X10*3/uL (0.0-0.4); Eosinophils Percent Auto 0.6 % (0-4); Hematocrit 29.5 % (42-52); Imm Gran Abs Auto 0.07 X10*3/uL (0.00-0.03); Imm Gran Pct Auto 0.7 % (0.0-0.4); Lymphocytes Percent Auto 11.8 % (20-40); Mean Corpuscular HGB Conc 37.3 g/dl (31.0-36.0); Mean Corpuscular Hemoglobin 36.2 pg (27.0-33.0); Mean Platelet Volume 10.8 fL (9.4-12.4); Monocytes Absolute Auto 1.2 X10*3/uL (0.1-1.2); Monocytes Percent Auto 11.8 % (2-11); Neutrophils Absolute Auto 7.3 X10*3/uL (2.0-8.3); Neutrophils Percent Auto 74.7 % (45-73); Platelet Count 111 X10*3/uL (160-400); Red Blood Count 3.04 X10*6/uL (4.60-5.80); White Blood Count 9.8 X10*3/uL (4.8-10.8)
[2020-11-26 09:48] LABS: SLIDE REVIEW VERIFIED
[2020-11-26 09:50] LABS: Ammonia 85 umol/L (13-55)
[2020-11-26 10:05] LABS: Alanine Aminotransferase 40 U/L (0-40); Albumin Level 2.2 g/dL (3.5-5.0); Alkaline Phosphatase 181 U/L (39-117); Anion Gap 12 (12-20); Aspartate Amino Transferase 149 U/L (5-37); Bilirubin Direct 17.8 mg/dL (0.0-0.5); Blood Urea Nitrogen 9 mg/dL (9-16); Calcium 7.8 mg/dL (8.4-10.2); Carbon Dioxide 23 mmol/L (22-29); Chloride 94 mmol/L (96-108); Creatinine Clr Calc Pharmacy 91.8; Estimated Glomerular Filt Rate > 60; Glucose Random 109 mg/dL (60-115); Potassium 3.2 mmol/L (3.3-5.1); Sodium 126 mmol/L (135-145); Total Protein 6.8 g/dL (6.5-8.0)
[2020-11-26 10:30] LABS: Bilirubin Total 29.5 mg/dL (0.0-1.0)
--- NOTE | 2020-11-26 10:42 | HO.PM.IMPN ---
Subjective Subjective Date of Service: 11/28/20 <Belem Calix NP - Last Filed: 11/28/20 12:54> 11/26/20 <Finesse Smith MD - Last Filed: 11/29/20 15:15> Interval History: Follow up weakness, diarrhea, jaundice. No abdominal pain, difficulty with urination. diarrhea <Belem Calix NP - Last Filed: 11/28/20 12:54> Physical Exam Vital Signs: Vital Signs: Last Vital Signs Temp 98.3 F 11/26/20 02:42 Pulse 102 H 11/26/20 02:42 Resp 16 11/26/20 02:42 BP 133/73 11/26/20 02:42 Pulse Ox 98 11/26/20 02:42 Body Mass Index 26.6 <Belem Calix NP - Last Filed: 11/28/20 12:54> Appearing in no acute distress head is normocephalic atraumatic eyes pupils are PERRLA sclera is icteric lung sounds are clear to auscultation heart regular rate rhythm, clear S1, S2, 3-4+ pitting lower extremity edema positive bowel sounds, abdomen is soft, non-tender neuro patient is alert x3, no focal deficits skin Jaundice <Belem Calix NP - Last Filed: 11/28/20 12:54> Objective Data Current Medications Generic Name Dose Route Start Last Admin Trade Name Freq PRN Reason Stop Dose Admin Docusate Sodium 100 mg 11/26/20 02:42 Docusate Sodium 100 Mg Capsule PO DAILY PRN Constipation Folic Acid 1 mg 11/26/20 09:00 11/26/20 08:18 Folic Acid 1 Mg Tablet PO 1 mg DAILY KURT Administration Albumin Human 100 mls @ 100 mls/hr 11/26/20 10:30 Kedbumin 25 % IV 11/26/20 12:29 Q1H KURT Lactulose 30 gm 11/26/20 02:42 11/26/20 08:18 Lactulose 20 Gm/30 Ml Solution PO 30 gm TID KURT Administration Medication 1 each 11/26/20 09:00 No Benzodiazepines MISCELLANE DAILY KURT Ondansetron HCl 4 mg 11/26/20 02:42 Ondansetron Hcl 4 Mg/2 Ml Vial IVPUSH Q8H PRN Nausea and Vomiting Pharmacy Consult 1 each 11/26/20 00:34 Consult Rx Perform Med Rec MISCELLANE ONCE PRN Consult order Sodium Chloride 3 ml 11/26/20 08:00 11/26/20 08:15 0.9 % Sodium Chloride Flush 3 Ml Syringe IVFLUSH 3 ml QSHIFT KURT Administration Thiamine HCl 100 mg 11/26/20 09:00 11/26/20 08:18 Thiamine Hcl 100 Mg Tablet PO 100 mg DAILY KURT Administration <Belem Calix NP - Last Filed: 11/28/20 12:54> Labs CBC & Chem 7: : 11/27/20 04:04 11/28/20 05:43 <Belem Calix NP - Last Filed: 11/28/20 12:54> Assessment and Plan (1) Acute liver failure: Status: Acute <Belem Calix NP - Last Filed: 11/28/20 12:54> Assessment and Plan: This is a 40-year-old male with history of alcohol abuse who presents to the hospital due to weakness and yellowing of the skin. He drinks more than 8 beers daily. Acute liver failure with hyperbilirubinemia . secondary to alcohol abuse. abdominal ultrasound showed moderate amount of ascites fluid - hep B,C negative - Bili 29.5 - diagnostic paracentesis, no SBP - start prednisone 40mg daily - GI following - If no improvement is seen consider transfer to tertiary liver specialty facility Hyponatremia. Secondary to alcohol abuse, beer potomania. - Fluid restriction 1 liter - If sodium goes up to >130 for evening recheck, start D5W - Nephrology following - trend Coagulaopathy. Related to alcohol use. - IV vitamin K for 3 days - Trend PT/INR Alcohol abuse with potential for withdrawal - 6-8 beers daily - Stop phenobarbitol due to liver failure, start CIWA with ativan. - thiamine and folic acid supplement Urinary retension. -Mcneill catheter for fluid management Hypoalbumenia. Secondary to liver failure. Pitting lower extremity edema, jaundice, diarrhea. - Repleted - Trend Hyperammonemia. Secondary to liver failure. No confusion. Having multiple episodes of loose stool. - Decrease lactulose to 20mg daily and monitor ammonia levels. Avoid overly aggressive treatment due to hyponatremia - trend ammonia Anemia. Secondary to liver disease -Trend HH -monitor for bleeding Protein calorie malnutrition. Needs high protein diet, encourage oral intake. - Add ensure to diet - Nutrition consultation. DVT prophylaxis with mechanical compression boots. Attending: Dr. Smith <Belem Calix NP - Last Filed: 11/28/20 12:54> (2) Liver cirrhosis: Status: Acute <Belem Calix NP - Last Filed: 11/28/20 12:54> Assessment and Plan: Patient seen and examined independently and I was present during song portion of E/M service. Agree with Liliya Calix NP's history, physical, assessment, and plan. date of service for this note is 11/26/2020 and not 11/28 <Finesse Smith MD - Last Filed: 11/29/20 15:15>
[2020-11-26 11:14] LABS: Glucose, Whole Blood 100 mg/dL (60-115)
[2020-11-26 11:36] LABS: B Type Natriuretic Peptide 101 pg/mL (<100)
[2020-11-26] MEDS: Potassium Chloride Packet 20 MEQ PACKET 40 MEQ PO (11:38)
[2020-11-26] MEDS: Albumin Human 25 % 100 ML IV ×2 (11:38→12:49)
--- NOTE | 2020-11-26 12:05 | PC.NURSE ---
patient was oob to commode, while on the commode the patient pulled out his cath, vernon texted provider to see if they wish to have another one inserted as this nurse feels the patient would pull it back out again. notified dr. hernandez who stated dr. martinez is caring for the patient, vicki texted dr. martinez.
--- NOTE | 2020-11-26 12:50 | PC.NURSE ---
provider agreed to allow no cervantes cath at this time, pt medicated with second bottle of albumin
--- NOTE | 2020-11-26 13:03 | MHC.CM.PN ---
Attempted to meet with patient in regards to discharge planning. Patient is currently confused. Spoke with patient's mother, Mahnaz via telephone at [phone]. Patient lives with his parents, ambulates independently and had no services prior to coming to the hospital. Patient does not have a PCP because he only recently obtained [facility]. No HCP on file. Patient has not been admitted to any other hospital. Per Mahnaz, patient has been having difficulty ambulating for about 2 weeks. Since that time, his feet have been increasing in size due to swelling. Physical therapy eval for home safety should be ordered when medically stable. Continue to monitor for d/c needs.
--- NOTE | 2020-11-26 13:24 | PC.NURSE ---
attempted to call report, as report was being given the nurse stated she misunderstood the name and that a different nurse will be calling back to get report
[2020-11-26 14:25] LABS: Osmolality, Serum 269 mosm/kg (281-305)
[2020-11-26 14:31] LABS: Anion Gap 15 (12-20); Blood Urea Nitrogen 9 mg/dL (9-16); Calcium 8.3 mg/dL (8.4-10.2); Carbon Dioxide 22 mmol/L (22-29); Chloride 95 mmol/L (96-108); Creatinine Clr Calc Pharmacy 84.3; Estimated Glomerular Filt Rate > 60; Glucose Random 95 mg/dL (60-115); Lactate Dehydrogenase 185 U/L (118-273); Potassium 3.5 mmol/L (3.3-5.1); Sodium 128 mmol/L (135-145); Total Protein 7.2 g/dL (6.5-8.0)
[2020-11-26 14:32] LABS: Ammonia 48 umol/L (13-55)
[2020-11-26] MEDS: Phytonadione (Vit K1) 5 MG in 0.9 % Sodium Chloride 50 ML 50.5 MG IV (15:08)
[2020-11-26 16:49] LABS: MN% 67.2 %; PMN% 32.8 %; WBC Peritoneal Fluid 0.232 X10*3/uL
[2020-11-26 16:57] LABS: RBC Peritoneal Fluid < 0.002 X10*6/uL
--- NOTE | 2020-11-26 17:19 | HO.RADPN ---
RADIOLOGY Narrative Narrative: RLQ paracentesis performed using 5 Fr rapidcentesis catheter. 2.3 L dark yellow clear fluid removed. Diagnostic specimen sent.
[2020-11-26 18:26] LABS: BF Shift QC OK YES; Basophils Peritoneal Fl 0 %; Eosinophils Peritoneal Fl 0 %; Lymphocyte Peritoneal Fl 13 %; Monocytes Peritoneal Fl 67 %; Neutrophils Peritoneal Fluid 2 %; Other Peritioneal Fl 18 %
[2020-11-26] MEDS: predniSONE 20 MG TABLET 40 MG PO (18:33)
[2020-11-26 19:23] LABS: Anion Gap 13 (12-20); Blood Urea Nitrogen 10 mg/dL (9-16); Calcium 8.3 mg/dL (8.4-10.2); Carbon Dioxide 25 mmol/L (22-29); Chloride 95 mmol/L (96-108); Creatinine Clr Calc Pharmacy 88.3; Estimated Glomerular Filt Rate > 60; Glucose Random 96 mg/dL (60-115); Potassium 3.7 mmol/L (3.3-5.1); Sodium 129 mmol/L (135-145)
[2020-11-26 19:37] LABS: Hematocrit 30.5 % (42-52); Hemoglobin 11.3 g/dl (14.0-18.0)
[2020-11-26 20:09] LABS: Anion Gap 13 (12-20); Blood Urea Nitrogen 10 mg/dL (9-16); Calcium 8.2 mg/dL (8.4-10.2); Carbon Dioxide 23 mmol/L (22-29); Chloride 96 mmol/L (96-108); Creatinine Clr Calc Pharmacy 90.9; Estimated Glomerular Filt Rate > 60; Glucose Random 114 mg/dL (60-115); Potassium 3.2 mmol/L (3.3-5.1); Sodium 129 mmol/L (135-145)
--- NOTE | 2020-11-26 22:24 | PC.NURSE ---
NA 129, K 3.2 ,Dr. bone notified
[2020-11-26 22:34] LABS: Osmolality Urine 340 mosm/kg (373-1093)
--- NOTE | 2020-11-26 22:56 | CONS_ITS ---
DATE OF SERVICE: REASON FOR CONSULTATION: I was called to see this patient to assist in the management of hyponatremia. HISTORY OF PRESENT ILLNESS: To summarize, David is a 40-year-old man with a history of alcohol abuse and liver failure. He comes in because of skin changes. He was found to have serum sodium of 122 millimoles. He was given IV fluids in the ER and this morning sodium was 126, and this consultation requested. PAST MEDICAL HISTORY: Ongoing medical problems include history of alcoholic liver disease, normal renal function. REVIEW OF SYSTEMS: Revealed increased thirst, abdominal distention, jaundice. No shortness of breath. No nausea or vomiting. No diarrhea or constipation. SOCIAL HISTORY: He consumes about 2 to 7 cans of beer. He denies any smoking. MEDICATIONS: At the time of admission included lactulose, Zofran. ALLERGIES: NO KNOWN DRUG ALLERGIES. PHYSICAL EXAMINATION: GENERAL: David is a 41 man. He is deeply jaundiced, appears ill, not in any distress. NECK: Supple. No JVD. LUNGS: Air entry equal. No rales. HEART: S1, S2 heard. No gallop. ABDOMEN: Distended, soft. Bowel sounds heard. NEUROLOGIC: Alert and awake. EXTREMITIES: There is 1+ edema bilaterally. No rash. No clubbing. VITAL SIGNS: Blood pressure was 106/60, pulse 100, temperature 98.2. LABORATORY DATA: As of this morning, sodium 126, potassium 3.2, BUN 9, creatinine 1.02, with a direct bilirubin of 17.8, calcium 7.8. Urinalysis showed specific gravity 1.010, with glycosuria. IMPRESSION: A 40-year-old man with hyponatremia, history of cirrhosis of the liver. David has hypervolemic hyponatremia. I suspect the intake of excessive beer/water has led to free water retention making the hyponatremia worse. RECOMMENDATION: My recommendation at this point would be to restrict oral free water intake. Check the serum sodium every 4 hours to avoid rapid correction and check urine for sodium osmolality and serum osmolality. Goal is to correct the serum sodium at a rate of 0.5 millimole per liter per hour and not to exceed more than 10 millimoles in a 24-hour period. We will follow him closely with the team. Coy Yo MD BPA/MODL / [id number]
[2020-11-27 03:49] VITALS: BP 155/86; PULSE 88; RESP 16; TEMP 36.2; O2SAT 98
[2020-11-27 04:19] LABS: Basophils Percent Auto 0.1 % (0-2); Hemoglobin 10.5 g/dl (14.0-18.0); Imm Gran Abs Auto 0.07 X10*3/uL (0.00-0.03); Imm Gran Pct Auto 0.8 % (0.0-0.4); PLT CLUMP 1; SCAN SMEAR FLAG 1
[2020-11-27 04:21] LABS: Eosinophils Percent Auto 0.2 % (0-4); Hematocrit 28.7 % (42-52); Lymphocytes Absolute Auto 0.8 X10*3/uL (1.2-4.9); Lymphocytes Percent Auto 8.2 % (20-40); Mean Corpuscular HGB Conc 36.6 g/dl (31.0-36.0); Mean Corpuscular Hemoglobin 36.1 pg (27.0-33.0); Mean Corpuscular Volume 98.6 fL (80-98); Mean Platelet Volume 10.3 fL (9.4-12.4); Monocytes Absolute Auto 0.7 X10*3/uL (0.1-1.2); Monocytes Percent Auto 7.5 % (2-11); Neutrophils Absolute Auto 7.7 X10*3/uL (2.0-8.3); Neutrophils Percent Auto 83.2 % (45-73); Platelet Count 109 X10*3/uL (160-400); Red Blood Count 2.91 X10*6/uL (4.60-5.80); Red Cell Distribution Width 17.3 % (11.0-16.0); White Blood Count 9.2 X10*3/uL (4.8-10.8)
[2020-11-27 04:24] LABS: INTERNATIONAL NORM RATIO 2.2 (0.9-1.1); Prothrombin Time 26.2 SEC (10.8-13.0)
[2020-11-27 04:26] LABS: MANUAL DIFF FLAG NO
[2020-11-27 05:00] LABS: Alanine Aminotransferase 34 U/L (0-40); Albumin Level 2.4 g/dL (3.5-5.0); Alkaline Phosphatase 155 U/L (39-117); Anion Gap 11 (12-20); Aspartate Amino Transferase 114 U/L (5-37); Blood Urea Nitrogen 11 mg/dL (9-16); Calcium 7.8 mg/dL (8.4-10.2); Carbon Dioxide 22 mmol/L (22-29); Chloride 96 mmol/L (96-108); Creatinine Clr Calc Pharmacy 93.6; Estimated Glomerular Filt Rate > 60; Glucose Random 144 mg/dL (60-115); Potassium 3.3 mmol/L (3.3-5.1); Sodium 126 mmol/L (135-145); Total Protein 6.1 g/dL (6.5-8.0)
[2020-11-27 05:19] LABS: Bilirubin Total 26.7 mg/dL (0.0-1.0)
[2020-11-27 05:23] LABS: Bilirubin Direct 19.1 mg/dL (0.0-0.5)
[2020-11-27 07:39] LABS: Albumin Peritoneal Fluid 0.6; LDH Peritoneal Fluid 62; Total Protein Peritoneal Fluid 1.5
[2020-11-27 07:40] LABS: Glucose Peritoneal Fluid 105
[2020-11-27 07:41] LABS: pH Peritoneal Fluid 7.54
[2020-11-27 07:52] VITALS: BP 139/69; PULSE 85; RESP 17; TEMP 36.5; O2SAT 99
[2020-11-27 08:25] LABS: Amylase Peritoneal Fluid 12
[2020-11-27 08:29] LABS: Ammonia 72 umol/L (13-55)
[2020-11-27] MEDS: Folic Acid 1 MG TABLET PO (09:12)
[2020-11-27] MEDS: Thiamine HCL 100 MG TABLET PO (09:12)
[2020-11-27] MEDS: predniSONE 20 MG TABLET 40 MG PO (09:12)
[2020-11-27] MEDS: Lactulose 20 GM/30 ML SOLUTION PO ×2 (09:13→20:52)
--- NOTE | 2020-11-27 09:50 | P.PNNP_ITS ---
Subjective Subjective Date of Service: 11/27/20 Interval history: Events noted Na increased to 129 and now down to 126 rate of correction acceptable. Unclear if he is on PO water restriction Physical Exam Vital Signs: Vital Signs: Last Vital Signs Temp 97.7 F 11/27/20 07:52 Pulse 85 11/27/20 07:52 Resp 17 11/27/20 07:52 BP 139/69 11/27/20 07:52 Pulse Ox 99 11/27/20 07:52 Body Mass Index 26.6 Const: General: ill appearing Nutritional Appearance: cachectic Orientation/consciousness: oriented to person Neck: Neck: Yes no JVD Chest: Breast/axilla inspection: normal inspection of the breasts Cardio: Heart sounds: no murmurs and no rubs GI: Inspection: Yes obesity Palpation (GI): Soft to palpation and Ascites present Auscultation: normal bowel sounds Skin: General skin exam: jaundice Neuro: General: oriented to person Motor exam (neuro): no asterixis Extrem: General: Yes edema (R>L) Objective Data Labs CBC & Chem 7: 11/27/20 04:04 11/27/20 04:04 Labs: Laboratory Results - last 24 hr 11/26/20 11/26/20 11/26/20 09:12 09:12 09:12 WBC RBC Hgb Hct MCV MCH MCHC 37.3 H RDW Plt Count MPV Immature Gran % (Auto) Neut % (Auto) Lymph % (Auto) [place] % (Auto) Eos % (Auto) Baso % (Auto) Lymph # (Auto) [place] # (Auto) Eos # (Auto) Baso # (Auto) Abs Immat Gran (auto) Absolute Neuts (auto) Absolute Nucleated RBC Nucleated RBC % (auto) PT INR Sodium 126 L Potassium 3.2 L Chloride 94 L Carbon Dioxide 23 Anion Gap 12 BUN 9 Creatinine 1.02 Estim Creat Clear Calc 91.8 Estimated GFR > 60 POC Glucose Random Glucose 109 Osmolality Calcium 7.8 L Total Bilirubin 29.5 H Direct Bilirubin 17.8 H AST 149 H ALT 40 Alkaline Phosphatase 181 H Ammonia 85 H Lactate Dehydrogenase B-Natriuretic Peptide Total Protein 6.8 Albumin 2.2 L Urine Osmolality Peritoneal pH Peritoneal WBC Peritoneal RBC Periton Neutrophils Periton Lymphocytes Peritoneal Monocytes Peritoneal Eosinophils Peritoneal Basophils Peritoneal Other Cells Peritoneal Tot Protein Peritoneal Albumin Peritoneal LDH Peritoneal Glucose Peritoneal Amylase 11/26/20 11/26/2021 09:12 11:07 13:50 WBC RBC Hgb Hct MCV MCH MCHC RDW Plt Count MPV Immature Gran % (Auto) Neut % (Auto) Lymph % (Auto) [place] % (Auto) Eos % (Auto) Baso % (Auto) Lymph # (Auto) [place] # (Auto) Eos # (Auto) Baso # (Auto) Abs Immat Gran (auto) Absolute Neuts (auto) Absolute Nucleated RBC Nucleated RBC % (auto) PT INR Sodium 128 L Potassium 3.5 Chloride 95 L Carbon Dioxide 22 Anion Gap 15 BUN 9 Creatinine 1.11 Estim Creat Clear Calc 84.3 Estimated GFR > 60 POC Glucose 100 Random Glucose 95 Osmolality Calcium 8.3 L D Total Bilirubin Direct Bilirubin AST ALT Alkaline Phosphatase Ammonia Lactate Dehydrogenase 185 B-Natriuretic Peptide 101 H Total Protein 7.2 Albumin Urine Osmolality Peritoneal pH Peritoneal WBC Peritoneal RBC Periton Neutrophils Periton Lymphocytes Peritoneal Monocytes Peritoneal Eosinophils Peritoneal Basophils Peritoneal Other Cells Peritoneal Tot Protein Peritoneal Albumin Peritoneal LDH Peritoneal Glucose Peritoneal Amylase 11/26/20 11/26/20 11/26/20 13:50 13:50 13:50 WBC RBC Hgb Hct MCV MCH MCHC RDW Plt Count MPV Immature Gran % (Auto) Neut % (Auto) Lymph % (Auto) [place] % (Auto) Eos % (Auto) Baso % (Auto) Lymph # (Auto) [place] # (Auto) Eos # (Auto) Baso # (Auto) Abs Immat Gran (auto) Absolute Neuts (auto) Absolute Nucleated RBC Nucleated RBC % (auto) PT INR Sodium Cancelled Potassium Chloride Carbon Dioxide Anion Gap BUN Creatinine Estim Creat Clear Calc Estimated GFR POC Glucose Random Glucose Osmolality 269 L Calcium Total Bilirubin Direct Bilirubin AST ALT Alkaline Phosphatase Ammonia 48 Lactate Dehydrogenase B-Natriuretic Peptide Total Protein Albumin Urine Osmolality Peritoneal pH Peritoneal WBC Peritoneal RBC Periton Neutrophils Periton Lymphocytes Peritoneal Monocytes Peritoneal Eosinophils Peritoneal Basophils Peritoneal Other Cells Peritoneal Tot Protein Peritoneal Albumin Peritoneal LDH Peritoneal Glucose Peritoneal Amylase 11/26/20 11/26/20 11/26/20 15:00 15:00 15:00 WBC RBC Hgb Hct MCV MCH MCHC RDW Plt Count MPV Immature Gran % (Auto) Neut % (Auto) Lymph % (Auto) [place] % (Auto) Eos % (Auto) Baso % (Auto) Lymph # (Auto) [place] # (Auto) Eos # (Auto) Baso # (Auto) Abs Immat Gran (auto) Absolute Neuts (auto) Absolute Nucleated RBC Nucleated RBC % (auto) PT INR Sodium Potassium Chloride Carbon Dioxide Anion Gap BUN Creatinine Estim Creat Clear Calc Estimated GFR POC Glucose Random Glucose Osmolality Calcium Total Bilirubin Direct Bilirubin AST ALT Alkaline Phosphatase Ammonia Lactate Dehydrogenase B-Natriuretic Peptide Total Protein Albumin Urine Osmolality Peritoneal pH 7.54 Peritoneal WBC 0.232 Peritoneal RBC < 0.002 Periton Neutrophils 2 Periton Lymphocytes 13 Peritoneal Monocytes 67 Peritoneal Eosinophils 0 Peritoneal Basophils 0 Peritoneal Other Cells 18 Peritoneal Tot Protein 1.5 Peritoneal Albumin 0.6 Peritoneal LDH 62 Peritoneal Glucose 105 Peritoneal Amylase 12 11/26/20 11/26/20 11/26/20 18:45 19:25 19:25 WBC RBC Hgb 11.3 L Hct 30.5 L MCV MCH MCHC RDW Plt Count MPV Immature Gran % (Auto) Neut % (Auto) Lymph % (Auto) [place] % (Auto) Eos % (Auto) Baso % (Auto) Lymph # (Auto) [place] # (Auto) Eos # (Auto) Baso # (Auto) Abs Immat Gran (auto) Absolute Neuts (auto) Absolute Nucleated RBC Nucleated RBC % (auto) PT INR Sodium 129 L 129 L Potassium 3.7 3.2 L Chloride 95 L 96 Carbon Dioxide 25 23 Anion Gap 13 13 BUN 10 10 Creatinine 1.06 1.03 Estim Creat Clear Calc 88.3 90.9 Estimated GFR > 60 > 60 POC Glucose Random Glucose 96 114 Osmolality Calcium 8.3 L 8.2 L Total Bilirubin Direct Bilirubin AST ALT Alkaline Phosphatase Ammonia Lactate Dehydrogenase B-Natriuretic Peptide Total Protein Albumin Urine Osmolality Peritoneal pH Peritoneal WBC Peritoneal RBC Periton Neutrophils Periton Lymphocytes Peritoneal Monocytes Peritoneal Eosinophils Peritoneal Basophils Peritoneal Other Cells Peritoneal Tot Protein Peritoneal Albumin Peritoneal LDH Peritoneal Glucose Peritoneal Amylase 11/26/20 11/27/20 11/27/20 21:48 04:04 04:04 WBC 9.2 RBC 2.91 L Hgb 10.5 L Hct 28.7 L MCV 98.6 H MCH 36.1 H MCHC 36.6 H RDW 17.3 H Plt Count 109 L MPV 10.3 Immature Gran % (Auto) 0.8 H Neut % (Auto) 83.2 H Lymph % (Auto) 8.2 L [place] % (Auto) 7.5 Eos % (Auto) 0.2 Baso % (Auto) 0.1 Lymph # (Auto) 0.8 L [place] # (Auto) 0.7 Eos # (Auto) 0.0 Baso # (Auto) 0.0 Abs Immat Gran (auto) 0.07 H Absolute Neuts (auto) 7.7 Absolute Nucleated RBC 0.000 Nucleated RBC % (auto) 0.0 PT INR Sodium 126 L Potassium 3.3 Chloride 96 Carbon Dioxide 22 Anion Gap 11 L BUN 11 Creatinine 1.00 Estim Creat Clear Calc 93.6 Estimated GFR > 60 POC Glucose Random Glucose 144 H Osmolality Calcium 7.8 L Total Bilirubin 26.7 H Direct Bilirubin 19.1 H AST 114 H ALT 34 Alkaline Phosphatase 155 H Ammonia Lactate Dehydrogenase B-Natriuretic Peptide Total Protein 6.1 L Albumin 2.4 L Urine Osmolality 340 L Peritoneal pH Peritoneal WBC Peritoneal RBC Periton Neutrophils Periton Lymphocytes Peritoneal Monocytes Peritoneal Eosinophils Peritoneal Basophils Peritoneal Other Cells Peritoneal Tot Protein Peritoneal Albumin Peritoneal LDH Peritoneal Glucose Peritoneal Amylase 11/27/20 11/27/20 11/27/20 04:04 04:04 07:46 WBC RBC Hgb Hct MCV MCH MCHC RDW Plt Count MPV Immature Gran % (Auto) Neut % (Auto) Lymph % (Auto) [place] % (Auto) Eos % (Auto) Baso % (Auto) Lymph # (Auto) [place] # (Auto) Eos # (Auto) Baso # (Auto) Abs Immat Gran (auto) Absolute Neuts (auto) Absolute Nucleated RBC Nucleated RBC % (auto) PT 26.2 H INR 2.2 H Sodium Potassium Chloride Carbon Dioxide Anion Gap BUN Creatinine Estim Creat Clear Calc Estimated GFR POC Glucose Random Glucose Osmolality Calcium Total Bilirubin Direct Bilirubin AST ALT Alkaline Phosphatase Ammonia 72 H Lactate Dehydrogenase B-Natriuretic Peptide Total Protein Albumin Cancelled Urine Osmolality Peritoneal pH Peritoneal WBC Peritoneal RBC Periton Neutrophils Periton Lymphocytes Peritoneal Monocytes Peritoneal Eosinophils Peritoneal Basophils Peritoneal Other Cells Peritoneal Tot Protein Peritoneal Albumin Peritoneal LDH Peritoneal Glucose Peritoneal Amylase Microbiology Microbiology Results: Microbiology 11/26/20 15:00 Abdominal Fluid Gram Stain - Final 11/25/20 21:52 Blood - Venous Blood Culture - Preliminary No growth after 24 hours. 11/25/20 21:52 Blood - Venous Blood Culture - Preliminary No growth after 24 hours. Assessment & Plan Assessment and plan (1) Hyponatremia: Problem details: Low Na in a setting of Liver failure and excessive beer /free water intake Urine OSM is elevated at > 300 : Suggestive of impaired free water excretion/SIADH rather than beer potomania suggest: Strict PO water restriction of 1.2L per 24 hrs Add Loop diuretic : Lasix 20 mg QD to INCREASE free water clearance Goal to increase pNa to 130 over the next 12 hours Repeat Na q 8 hrly today Status: Acute Time Spent With Patient Time: Total time spent is greater than 50% in coordination of care (as documented) at patient's floor/unit and/or counseling patient:
[2020-11-27] MEDS: Phytonadione (Vit K1) 5 MG in 0.9 % Sodium Chloride 50 ML 50.5 MG IV (10:21)
[2020-11-27] MEDS: 0.9 % Sodium Chloride Flush 3 ML SYRINGE IVFLUSH ×3 (10:22→20:52)
--- NOTE | 2020-11-27 11:05 | MHC.CM.PN ---
CM MET W/HOSPITALIST TO DISCUSS CASE, PER HOSPITALIST PT WILL POSSIBLY REMAIN INPT THROUGH NEXT WEEK. PT WILL NEED PT EVAL WHEN STABLE TO DETERMINE HOME SAFETY PRIOR TO D/C.
--- NOTE | 2020-11-27 11:28 | HO.PM.IMPN ---
Subjective Subjective Date of Service: 11/27/20 <TEJINDER Carey - Last Filed: 11/27/20 14:05> 11/27/20 <Finesse Smith MD - Last Filed: 11/28/20 10:02> Interval History: Follow-up- liver failure, etoh abuse Seems somewhat slow this morning, has no complaints. No overnight events <TEJINDER Carey - Last Filed: 11/27/20 14:05> Review of Systems Review of Systems: Yes all other systems are reviewed and are negative <TEJINDER Carey - Last Filed: 11/27/20 14:05> Constitutional Constitutional: Denies chills and Denies fever(s) <TEJINDER Carey - Last Filed: 11/27/20 14:05> Cardiovascular Cardiovascular: Denies chest pain <TEJINDER Carey - Last Filed: 11/27/20 14:05> Respiratory Respiratory: Denies cough <TEJINDER Carey - Last Filed: 11/27/20 14:05> Physical Exam Vital Signs: Vital Signs: Last Vital Signs Temp 97.7 F 11/27/20 07:52 Pulse 85 11/27/20 07:52 Resp 17 11/27/20 07:52 BP 139/69 11/27/20 07:52 Pulse Ox 99 11/27/20 07:52 Body Mass Index 26.6 <TEJINDER Carey - Last Filed: 11/27/20 14:05> Const: General: alert and awake <TEJINDER Carey - Last Filed: 11/27/20 14:05> Nutritional Appearance: thin <TEJINDER Carey - Last Filed: 11/27/20 14:05> HENMT: Head: Yes normocephalic and Yes atraumatic <TEJINDER Carey - Last Filed: 11/27/20 14:05> Eyes: Other: Bilateral scleral icterus <TEJINDER Carey Last Filed: 11/27/20 14:05> Chest: Chest palpation & inspection: normal inspection of the chest <TEJINDER Carey Last Filed: 11/27/20 14:05> Resp: Effort & Inspection: normal respiratory effort and no respiratory distress <TEJINDER Carey - Last Filed: 11/27/20 14:05> Auscultation: clear to auscultation bilaterally <TEJINDER Carey - Last Filed: 11/27/20 14:05> Cardio: Rate: regular rate <TEJINDER Carey - Last Filed: 11/27/20 14:05> Rhythm: regular rhythm <TEJINDER Carey - Last Filed: 11/27/20 14:05> GI: Other: softly distended <TEJINDER Carey - Last Filed: 11/27/20 14:05> Palpation (GI): nontender and no guarding <TEJINDER Carey - Last Filed: 11/27/20 14:05> : Other: Mcneill present, draining dark urine <TEJINDER Carey - Last Filed: 11/27/20 14:05> Skin: General skin exam: jaundice <TEJINDER Carey Last Filed: 11/27/20 14:05> Neuro: Cranial nerves: Yes CN's II-XII intact bilaterally and Yes Bilaterally intact EOM present <TEJINDER Carey - Last Filed: 11/27/20 14:05> Extrem: Other: b/l pitting edema right greater than left <TEJINDER Carey Last Filed: 11/27/20 14:05> Objective Data Current Medications Generic Name Dose Route Start Last Admin Trade Name Estrella PRN Reason Stop Dose Admin Docusate Sodium 100 mg 11/26/20 02:42 Docusate Sodium 100 Mg Capsule PO DAILY PRN Constipation Folic Acid 1 mg 11/26/20 09:00 11/27/20 09:12 Folic Acid 1 Mg Tablet PO 1 mg DAILY KURT Administration Phytonadione 5 mg/ Sodium 50.5 mls @ 50.5 mls/hr 11/26/20 14:15 11/27/20 10:21 Chloride IV 11/28/20 09:59 50.5 mls/hr DAILY KURT Administration Lactulose 20 gm 11/27/20 09:00 11/27/20 09:13 Lactulose 20 Gm/30 Ml Solution PO 20 gm DAILY KURT Administration Lorazepam 1 mg 11/26/20 16:52 Lorazepam 2 Mg/Ml Vial IVPUSH Q4H PRN Alcohol Withdrawal Medication 1 each 11/26/20 09:00 No Benzodiazepines MISCELLANE DAILY KURT Ondansetron HCl 4 mg 11/26/20 02:42 Ondansetron Hcl 4 Mg/2 Ml Vial IVPUSH Q8H PRN Nausea and Vomiting Pharmacy Consult 1 each 11/26/20 00:34 Consult Rx Perform Med Rec MISCELLANE ONCE PRN Consult order Prednisone 40 mg 11/26/20 17:00 11/27/20 09:12 Prednisone 20 Mg Tablet PO 40 mg DAILY KURT Administration Sodium Chloride 3 ml 11/26/20 08:00 11/27/20 10:22 0.9 % Sodium Chloride Flush 3 Ml Syringe IVFLUSH 3 ml QSHIFT KURT Administration Thiamine HCl 100 mg 11/26/20 09:00 11/27/20 09:12 Thiamine Hcl 100 Mg Tablet PO 100 mg DAILY KURT Administration <TEJINDER Carey - Last Filed: 11/27/20 14:05> Labs CBC & Chem 7: : 11/27/20 04:04 11/28/20 05:43 <TEJINDER Carey - Last Filed: 11/27/20 14:05> Microbiology Microbiology Results: Microbiology 11/26/20 15:00 Abdominal Fluid Gram Stain - Final 11/25/20 21:52 Blood - Venous Blood Culture - Preliminary No growth after 24 hours. 11/25/20 21:52 Blood - Venous Blood Culture - Preliminary No growth after 24 hours. <TEJINDER Carey - Last Filed: 11/27/20 14:05> Assessment and Plan (1) Hyponatremia: Status: Acute <TEJINDER Carey - Last Filed: 11/27/20 14:05> (2) Acute liver failure: Status: Acute <TEJINDER Carey - Last Filed: 11/27/20 14:05> (3) Alcohol abuse: Status: Acute <TEJINDER Carey - Last Filed: 11/27/20 14:05> Assessment and Plan: This is a 40-year-old male with history of alcohol abuse who presents to the hospital due to weakness and jaundice found to be in acute liver failure Acute liver failure/decompensated liver cirrhosis with anemia, thrombocytopenia and coagulopathy secondary to alcohol abuse. abdominal ultrasound showed moderate amount of ascites fluid/cirrhosis - hep B,C negative - s/p diagnostic paracentesis, no SBP - continue prednisone 40mg daily - GI following, recommend eval for secondary causes of liver disease, workup pending - If no improvement consider transfer to tertiary liver specialty facility, call out to [facility] for consideration Hyponatremia. Na 126 this morning labs suggestive of SIADH -nephrology following & recommend: Strict PO water restriction of 1.2L per 24 hrs Add Loop diuretic : Lasix 20 mg QD to INCREASE free water clearance Goal to increase pNa to 130 over the next 12 hours Repeat Na q6h today Coagulaopathy. Related to liver disease - IV vitamin K for 3 days - Trend PT/INR Alcohol abuse with potential for withdrawal - 6-8 beers daily - phenobarbitol stopped due to liver failure, continue CIWA with ativan. - thiamine and folic acid supplement Urinary retention. -Mcneill catheter for fluid management Hypoalbumenia. Secondary to liver failure. Pitting lower extremity edema, jaundice - Repleted - Trend Hyperammonemia. Secondary to liver failure. Ammonia up to 75 today, somewhat confused - Will increase lactulose to 20mg BID and monitor ammonia levels. Avoid overly aggressive treatment due to hyponatremia - trend ammonia Anemia. Secondary to liver disease/etoh Stool occult negative -Trend HH -monitor for bleeding Thrombocytopenia Related to underlying liver disease -follow CBC Moderate Protein calorie malnutrition. Needs high protein diet, encourage oral intake. - ensure added - Nutrition consultation. DVT prophylaxis with mechanical compression boots. Attending: Dr. Smith <TEJINDER Carey - Last Filed: 11/27/20 14:05> Attending Attestation: Patient seen and examined independently and I was present during song portion of E/M service. Agree with TEJINDER Robertson's history, physical, assessment, and plan. Bili improving. Ammonia elevated, oriented to situation and place, but disoriented to time. Mild flapping tremor. Will increase lactulose. Call placed to [facility] for evaluation for transplant. Transfer if accepted and when bed available. <Finesse Smith MD - Last Filed: 11/28/20 10:02>
[2020-11-27 12:00] VITALS: BP 120/59; PULSE 72; RESP 18; TEMP 36.2; O2SAT 95
--- NOTE | 2020-11-27 12:00 | MHC.RECOVRN ---
Chart review completed after consult placed to CARE Team. Pt too acute to be seen by t/w at this time. Will continue to follow.
[2020-11-27 13:29] VITALS: BMI 26.6
--- NOTE | 2020-11-27 13:35 | MHC.CLN ---
RE: CONSULT PT IS MODERATELY MALNOURISHED PT WITH MILDLY DEPLETED SUBCUTANEOUS FAT AND MUSCLE MASS, POOR PO INTAKE X >3 MONTHS DIET RX: 2GM NA 1000CC FLUID RESTRICTION-APPROPRIATE PT RECEIVING 8OZ ENSURE TID PROVIDES 1050KCALS, 60G PROTEIN, 540CC FREE WATER FOR FR NOTED NH3 LEVEL AND RECOMMEND DECREASING SUPPLEMENT IF NH3 LEVELS RISE AND INCREASE IN PO PROTEIN CAN AFFECT NH3 LEVELS-MONITOR CLOSELY PO INTAKE TODAY 100% SEE ALSO CLINICAL NUTRITION ASSESSMENT
[2020-11-27 13:36] LABS: Anion Gap 13 (12-20); Carbon Dioxide 24 mmol/L (22-29); Chloride 96 mmol/L (96-108); Creatinine Clr Calc Pharmacy 90.9; Estimated Glomerular Filt Rate > 60; Glucose Random 140 mg/dL (60-115); Potassium 3.6 mmol/L (3.3-5.1); Sodium 129 mmol/L (135-145)
[2020-11-27 15:11] VITALS: BP 127/66; PULSE 83; RESP 18; TEMP 36.4; O2SAT 95
--- NOTE | 2020-11-27 15:32 | MHC.CM.PN ---
PER MULTIDISCIPLINARY ROUNDS PT MAY TRANSFER [facility] IN THE NEXT 1-2 DAYS PENDING INSURANCE REVIEW. CM WILL CONT TO FOLLOW FOR CHANGE IN D/C NEEDS.
[2020-11-27 16:57] LABS: Blood Urea Nitrogen 13 mg/dL (9-16); Calcium 8.2 mg/dL (8.4-10.2)
[2020-11-27 18:20] LABS: Iron 94 mcg/dL (45-160); Total Iron Binding Capacity < 111 mcg/dL (228-428); Unsaturated Iron Binding < 17 ug/dL
[2020-11-27 19:07] LABS: Ferritin 1851 ng/mL (20-250)
[2020-11-27 19:23] VITALS: BP 124/66; PULSE 90; RESP 16; TEMP 36.6; O2SAT 96
[2020-11-27 19:48] LABS: Anion Gap 11 (12-20); Blood Urea Nitrogen 13 mg/dL (9-16); Calcium 8.4 mg/dL (8.4-10.2); Carbon Dioxide 26 mmol/L (22-29); Chloride 96 mmol/L (96-108); Creatinine Clr Calc Pharmacy 87.5; Estimated Glomerular Filt Rate > 60; Gamma Glutamyl Transpeptidase 88 U/L (11-51); Glucose Random 130 mg/dL (60-115); Potassium 3.3 mmol/L (3.3-5.1); Sodium 130 mmol/L (135-145)
[2020-11-27 23:17] VITALS: BP 146/75; PULSE 93; RESP 16; TEMP 36.9; O2SAT 98
[2020-11-28] MEDS: LORazepam 2 MG/ML VIAL 1 MG IVPUSH ×4 (00:36→21:43)
[2020-11-28 01:35] LABS: Anion Gap 12 (12-20); Blood Urea Nitrogen 14 mg/dL (9-16); Calcium 8.3 mg/dL (8.4-10.2); Carbon Dioxide 24 mmol/L (22-29); Chloride 97 mmol/L (96-108); Creatinine Clr Calc Pharmacy 93.6; Estimated Glomerular Filt Rate > 60; Glucose Random 152 mg/dL (60-115); Potassium 3.3 mmol/L (3.3-5.1); Sodium 130 mmol/L (135-145)
[2020-11-28] MEDS: diphenhydrAMINE HCL 50 MG/ML VIAL 25 MG IVPUSH (02:23)
[2020-11-28 04:00] VITALS: BP 126/73; PULSE 81; RESP 18; TEMP 36.6; O2SAT 94
[2020-11-28 06:29] LABS: INTERNATIONAL NORM RATIO 1.9 (0.9-1.1); Prothrombin Time 22.4 SEC (10.8-13.0)
[2020-11-28 06:39] LABS: Alanine Aminotransferase 33 U/L (0-40); Albumin Level 2.4 g/dL (3.5-5.0); Alkaline Phosphatase 147 U/L (39-117); Aspartate Amino Transferase 106 U/L (5-37); Total Protein 6.3 g/dL (6.5-8.0)
[2020-11-28 06:54] LABS: Bilirubin Direct 16.7 mg/dL (0.0-0.5); Bilirubin Total 25.4 mg/dL (0.0-1.0)
[2020-11-28 07:56] VITALS: BP 128/64; PULSE 87; RESP 19; TEMP 36.8; O2SAT 97
[2020-11-28 08:33] LABS: Anion Gap 13 (12-20); Blood Urea Nitrogen 13 mg/dL (9-16); Calcium 8.2 mg/dL (8.4-10.2); Carbon Dioxide 24 mmol/L (22-29); Chloride 98 mmol/L (96-108); Creatinine Clr Calc Pharmacy 106.4; Estimated Glomerular Filt Rate > 60; Glucose Random 112 mg/dL (60-115); Potassium 3.6 mmol/L (3.3-5.1); Sodium 131 mmol/L (135-145)
--- NOTE | 2020-11-28 09:10 | MHC.CM.PN ---
EMR REVIEWED, DISCHARGE SUMMARY ON FILE, PT WILL TRANSFER TO [facility] ONCE BED IS AVAILABLE.
[2020-11-28] MEDS: 0.9 % Sodium Chloride Flush 3 ML SYRINGE IVFLUSH ×2 (09:14→15:35)
[2020-11-28] MEDS: Furosemide 20 MG/2 ML VIAL IVPUSH (09:14)
[2020-11-28] MEDS: Thiamine HCL 100 MG TABLET PO (09:14)
[2020-11-28] MEDS: predniSONE 20 MG TABLET 40 MG PO (09:14)
[2020-11-28] MEDS: Lactulose 20 GM/30 ML SOLUTION PO ×2 (09:14→21:34)
[2020-11-28] MEDS: Folic Acid 1 MG TABLET PO (09:14)
[2020-11-28] MEDS: Phytonadione (Vit K1) 5 MG in 0.9 % Sodium Chloride 50 ML 50.5 MG IV (09:20)
--- NOTE | 2020-11-28 13:57 | PM.PNNEP ---
Subjective Subjective Date of Service: 11/28/20 Physical Exam Vital Signs: Vital Signs: Last Vital Signs Temp 98.2 F 11/28/20 07:56 Pulse 87 11/28/20 07:56 Resp 19 11/28/20 07:56 BP 128/64 11/28/20 07:56 Pulse Ox 97 11/28/20 07:56 Body Mass Index 26.6 Const: General: ill appearing Nutritional Appearance: cachectic Orientation/consciousness: oriented to person Neck: Neck: Yes no JVD Chest: Breast/axilla inspection: normal inspection of the breasts Cardio: Heart sounds: no murmurs and no rubs GI: Inspection: Yes obesity Palpation (GI): Soft to palpation and Ascites present Auscultation: normal bowel sounds Skin: General skin exam: jaundice Neuro: General: oriented to person Motor exam (neuro): no asterixis Extrem: General: Yes edema (R>L) Objective Data Labs CBC & Chem 7: 11/27/20 04:04 11/28/20 05:43 Labs: Laboratory Results - last 24 hr 11/27/20 11/27/20 11/27/20 12:44 14:53 19:13 PT INR Sodium 130 L Potassium 3.3 Chloride 96 Carbon Dioxide 26 Anion Gap 11 L BUN 13 13 Creatinine 1.07 Estim Creat Clear Calc 87.5 Estimated GFR > 60 Random Glucose 130 H Calcium 8.2 L 8.4 Iron 94 TIBC < 111 L % Saturation TNP Unsat Iron Binding < 17 Ferritin 1851 H Total Bilirubin Direct Bilirubin GGT AST ALT Alkaline Phosphatase Total Protein Albumin 11/27/20 11/28/20 11/28/20 19:13 00:54 05:43 PT 22.4 H INR 1.9 H Sodium 130 L Potassium 3.3 Chloride 97 Carbon Dioxide 24 Anion Gap 12 BUN 14 Creatinine 1.00 Estim Creat Clear Calc 93.6 Estimated GFR > 60 Random Glucose 152 H Calcium 8.3 L Iron TIBC % Saturation Unsat Iron Binding Ferritin Total Bilirubin Direct Bilirubin GGT 88 H AST ALT Alkaline Phosphatase Total Protein Albumin 11/28/20 05:43 PT INR Sodium 131 L Potassium 3.6 Chloride 98 Carbon Dioxide 24 Anion Gap 13 BUN 13 Creatinine 0.88 Estim Creat Clear Calc 106.4 Estimated GFR > 60 Random Glucose 112 Calcium 8.2 L Iron TIBC % Saturation Unsat Iron Binding Ferritin Total Bilirubin 25.4 H Direct Bilirubin 16.7 H GGT AST 106 H ALT 33 Alkaline Phosphatase 147 H Total Protein 6.3 L Albumin 2.4 L Microbiology Microbiology Results: Microbiology 11/26/20 15:00 Abdominal Fluid Gram Stain - Final 11/26/20 15:00 Abdominal Fluid Routine Culture - Final No growth after 2 days 11/26/20 15:00 Abdominal Fluid Anaerobic Culture - Preliminary No growth to date. 11/25/20 21:52 Blood - Venous Blood Culture - Preliminary No growth after 48 hours. 11/25/20 21:52 Blood - Venous Blood Culture - Preliminary No growth after 48 hours. Assessment & Plan Assessment and plan (1) Hyponatremia: Problem details: Hyponatremia in a setting of Liver failure NA is gradually improving Keep on PO Water restriction Lasix 20 mg PO to increase free water excretion and watch pNa Status: Acute Time Spent With Patient Time: Total time spent is greater than 50% in coordination of care (as documented) at patient's floor/unit and/or counseling patient:
[2020-11-28 15:02] LABS: Anti Nuclear Antibody Screen NEGATIVE (NEGATIVE)
[2020-11-28 15:32] VITALS: BP 118/70; PULSE 99; RESP 18; TEMP 36.8; O2SAT 96
--- NOTE | 2020-11-28 16:12 | P.PNIM_ITS ---
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 Difficult to obtain detail review of systems due to somnolence General patient denies pain no fever chills GI denies nausea vomiting or abdominal pain Respiratory denies cough or shortness of breath. Physical Exam Vital Signs: Vital Signs: Last Vital Signs Temp 98.3 F 11/28/20 15:32 Pulse 99 11/28/20 15:32 Resp 18 11/28/20 15:32 BP 118/70 11/28/20 15:32 Pulse Ox 96 11/28/20 15:32 Body Mass Index 26.6 General somnolent easily arousable in no distress Neck no JVD. CVS regular rate rhythm, Respiratory lungs clear to auscultation, no respiratory distress, no wheeze, no rhonchi. Gastrointestinal abdomen distended nontender, no guarding , no rigidity. Extremities bilateral edema. Neuro moving all 4 extremity speech clear. Skin jaundice, icteric sclerae Mcneill dark-colored urine Objective Data Current Medications Generic Name Dose Route Start Last Admin Trade Name Freq PRN Reason Stop Dose Admin Docusate Sodium 100 mg 11/26/20 02:42 Docusate Sodium 100 Mg Capsule PO DAILY PRN Constipation Folic Acid 1 mg 11/26/20 09:00 11/28/20 09:14 Folic Acid 1 Mg Tablet PO 1 mg DAILY KURT Administration Furosemide 20 mg 11/28/20 09:00 11/28/20 09:14 Furosemide 20 Mg/2 Ml Vial IVPUSH 20 mg DAILY KURT Administration Protocol Lactulose 20 gm 11/27/20 21:00 11/28/20 09:14 Lactulose 20 Gm/30 Ml Solution PO 20 gm BID KURT Administration Lorazepam 1 mg 11/26/20 16:52 11/28/20 15:36 Lorazepam 2 Mg/Ml Vial IVPUSH 1 mg Q4H PRN Administration Alcohol Withdrawal Ondansetron HCl 4 mg 11/26/20 02:42 Ondansetron Hcl 4 Mg/2 Ml Vial IVPUSH Q8H PRN Nausea and Vomiting Pharmacy Consult 1 each 11/26/20 00:34 Consult Rx Perform Med Rec MISCELLANE ONCE PRN Consult order Prednisone 40 mg 11/26/20 17:00 11/28/20 09:14 Prednisone 20 Mg Tablet PO 40 mg DAILY KURT Administration Sodium Chloride 3 ml 11/26/20 08:00 11/28/20 15:35 0.9 % Sodium Chloride Flush 3 Ml Syringe IVFLUSH 3 ml QSHIFT KURT Administration Thiamine HCl 100 mg 11/26/20 09:00 11/28/20 09:14 Thiamine Hcl 100 Mg Tablet PO 100 mg DAILY KURT Administration Labs CBC & Chem 7: 11/27/20 04:04 11/28/20 05:43 Microbiology Microbiology Results: Microbiology 11/26/20 15:00 Abdominal Fluid Gram Stain - Final 11/26/20 15:00 Abdominal Fluid Routine Culture - Final No growth after 2 days 11/26/20 15:00 Abdominal Fluid Anaerobic Culture - Preliminary No growth to date. 11/25/20 21:52 Blood - Venous Blood Culture - Preliminary No growth after 48 hours. 11/25/20 21:52 Blood - Venous Blood Culture - Preliminary No growth after 48 hours. Assessment and Plan (1) Liver cirrhosis: Status: Acute (2) Hyponatremia: Problem details: Hyponatremia in a setting of Liver failure NA is gradually improving Keep on PO Water restriction Lasix 20 mg PO to increase free water excretion and watch pNa Status: Acute (3) Jaundice: Status: Acute (4) Hyperbilirubinemia: Status: Acute (5) Hyperammonemia: Status: Acute (6) Alcohol abuse: Status: Acute (7) Acute liver failure: Status: Acute Assessment and Plan: 40-year-old male with history of alcohol abuse who presents to the hospital due to weakness and jaundice found to be in acute liver failure Acute liver failure/decompensated liver cirrhosis with anemia, thrombocytopenia and coagulopathy secondary to alcohol abuse. abdominal ultrasound showed moderate amount of ascites fluid/cirrhosis - hep B,C negative, s/p diagnostic paracentesis, no SBP - continue prednisone 40mg daily, GI following, recommend eval for secondary causes of liver disease, workup remains pending,since no significant improvement in symptoms patient is being transferred to tertiary liver specialty facility, at [facility] patient has been accepted and waiting for bed availability Call patient's mother healthcare proxy and informed her about plan of care, she wishes to be notified at the time of transfer to [facility]. Hyponatremia. Na improved to 131 this morning,labs suggestive of SIADH will continue fluid restriction 1.2 L per 24 hours, continue Lasix 20 mg daily Follow BMP closely Coagulaopathy. Related to liver disease, continue vitamin K, INR trended down from 2.2 to 1.9 no active bleeding noted Alcohol abuse with potential for withdrawal 6-8 beers daily, phenobarbitol stopped due to liver failure, continue CIWA with ativan, patient somnolent this morning since receive Ativan early this morning, continue thiamine and folic acid supplement Urinary retention.Mcneill catheter in place with dark orange urine Hypoalbumenia. Secondary to liver failure. Pitting lower extremity edema, jau ndice status post IV albumin, encourage by mouth Hyperammonemia. Secondary to liver failure,Ammonia up to 72, somewhat confused, continue lactulose 20 mg b.i.d.and monitor ammonia levels. Anemia. Secondary to liver disease/etoh,Stool occult negative, no active bleeding noted,Trend [facility] Thrombocytopenia Related to underlying liver disease, follow CBC Moderate Protein calorie malnutrition. Needs high protein diet, encourage oral intake, ensure added DVT prophylaxis with mechanical compression boots.
--- NOTE | 2020-11-28 16:30 | P.DS_ITS ---
DS: Providers Provider Date of Service: 11/27/20 <TEJINDER Carey - Last Filed: 11/27/20 17:07> Date of admission: 11/26/20 00:44 <TEJINDER Carey - Last Filed: 11/27/20 17:07> Primary care physician: Lizz Physician <TEJINDER Carey - Last Filed: 11/27/20 17:07> Consults: 11/26/20 02:42 Consult to Gastroenterology Routine Consulting Provider: Lefty Frey Reason for consultation: liver failure Has provider been notified: Yes 11/26/20 06:20 Consult to Nephrology Routine Consulting Provider: Coy Yo Reason for consultation: hyponatremia Has provider been notified: No 11/26/20 16:56 Consult to Care Team Routine Comment: Reason for consultation: alcohol abuse <TEJINDER Carey - Last Filed: 11/27/20 17:07> DS: Diagnosis Discharge Diagnosis (1) Acute liver failure: Status: Acute <TEJINDER Carey - Last Filed: 11/27/20 17:07> (2) Hyponatremia: Status: Acute <TEJINDER Carey - Last Filed: 11/27/20 17:07> Problem details: Hyponatremia in a setting of Liver failure NA is gradually improving Keep on PO Water restriction Lasix 20 mg PO to increase free water excretion and watch pNa <TEJINDER Carey - Last Filed: 11/27/20 17:07> (3) Alcohol abuse: Status: Acute <TEJINDER Carey Last Filed: 11/27/20 17:07> (4) Liver cirrhosis: Status: Acute <TEJINDER Carey Last Filed: 11/27/20 17:07> (5) Hyperammonemia: Status: Acute <TEJINDER Carey Last Filed: 11/27/20 17:07> DS: Medications Discharge Medications Home Medications: Home Medications Medication Instructions Recorded Confirmed No Known Home Meds 11/25/20 11/25/20 <TEJINDER Carey - Last Filed: 11/27/20 17:07> DS: Summary Hospital Course Hospital Course: This is a 40-year-old male with past medical history of alcohol abuse who presents to the hospital stating that he has noticed skin changes as well as generalized fatigue and malaise. He reports that his mother noticed him turning yellow about 2 weeks ago but he did not notice therefore he had noted at until he started noticing it about 2-3 days ago. He is also complaining of generalized weakness with no other complaint. He denies any headache or change in vision, no chest pain, no shortness of breath, abdominal pain nausea or vomiting, he reports constipation with no diarrhea, no urinary symptoms. He has significant lower extremity edema that he has noticed for about 2-3 weeks. On arrival to the ED labs are significant for a temp of 98.2?, heart rate of 108, respiratory rate of 16, blood pressure 165/79, satting 95% on room air. Labs are significant for WBC count of 11.1, hemoglobin of 11.6, hematocrit of 31.2, platelet count of 119, PT of 24.9, INR of 2.1, sodium of 122, chloride of 89, BUN of 7, creatinine of 0.89, total bili of 31.2, direct bili of 19.4, AST of 167, ALT of 44, alk-phos of 201, ammonia of 66, albumin of 2.5, COVID-19 negative, Tylenol level less than 1, alcohol level positive, hepatitis panel pending. Head as well as cervical spine CT showing no acute intracranial pathology or fracture with dislocation of the cervical spine. Patient was admitted to the hospital with acute acute liver failure in the setting of alcohol abuse. MELD score on admission was 33. He Underwent diagnostic paracentesis which was negative for SBP. He was seen in consultation by GI who recommended to start prednisone and do workup for secondary causes of liver disease which is pending at this time. Hepatitis B and C were checked and were negative. He was noted to have associated anemia, thrombocytopenia, and coagulopathy. He was treated with IV Vitamin K with no change in INR. H/H has remained stable, stool occult is negative, there is no evidence of active bleeding. His ammonia level was elevated and he was treated with lactulose he has been accepted at [facility] for further management and evaluation for candidacy of liver transplant patient will be transferred to [facility] once bed is available. Alcohol dependence He was initially started on phenobarbital which was discontinued due to liver failure. He was changed to this CIWA/Ativan protocol. He was supplemented with thiamine and folate. Hyponatremia His sodium was 122 on admission. He was placed on fluid restriction and was seen in consultation by nephrology who felt his hyponatremia was related to impaired free water excretion/SIADH rather than beer potomania given elevated urine osmolarity and recommended to add lasix 20 daily. A cervantes catheter was placed for fluid management. Sodium has slowly improved to 132 at present. <TEJINDER Carey - Last Filed: 11/27/20 17:07> Time Spent with Patient Time attestation: Total time spent providing and/or coordinating discharge services: <TEJINDER Carey Last Filed: 11/27/20 17:07> Discharge coordination time: Greater than 30 minutes <TEJINDER Carey Last Filed: 11/27/20 17:07> Physical Exam Vital Signs: Vital Signs: Last Vital Signs Temp 97.5 F 11/27/20 15:11 Pulse 83 11/27/20 15:11 Resp 18 11/27/20 15:11 BP 127/66 11/27/20 15:11 Pulse Ox 95 11/27/20 15:11 Body Mass Index 26.6 <TEJINDER Carey Last Filed: 11/27/20 17:07> Const: General: alert and awake <TEJINDER Carey Last Filed: 11/27/20 17:07> Nutritional Appearance: thin <TEJINDER Carey Last Filed: 11/27/20 17:07> HENMT: Head: Yes normocephalic and Yes atraumatic <TEJINDER Carey Last Filed: 11/27/20 17:07> Eyes: Other: Bilateral scleral icterus <TEJINDER Carey Last Filed: 11/27/20 17:07> Chest: Chest palpation & inspection: normal inspection of the chest <TEJINDER Carey Last Filed: 11/27/20 17:07> Resp: Effort & Inspection: normal respiratory effort and no respiratory distress <TEJINDER Carey Last Filed: 11/27/20 17:07> Auscultation: clear to auscultation bilaterally <TEJINDER Carey - Last Filed: 11/27/20 17:07> Cardio: Rate: regular rate <TEJINDER Carey - Last Filed: 11/27/20 17:07> Rhythm: regular rhythm <TEJINDER Carey - Last Filed: 11/27/20 17:07> GI: Other: softly distended <TEJINDER Carey - Last Filed: 11/27/20 17:07> Palpation (GI): nontender and no guarding <TEJINDER Carey - Last Filed: 11/27/20 17:07> : Other: Cervantes present, draining dark urine <TEJINDER Carey - Last Filed: 11/27/20 17:07> Skin: General skin exam: jaundice <TEJINDER Carey - Last Filed: 11/27/20 17:07> Neuro: Cranial nerves: Yes CN's II-XII intact bilaterally and Yes Bilaterally intact EOM present <TEJINDER Carey - Last Filed: 11/27/20 17:07> Extrem: Other: b/l pitting edema right greater than left <TEJINDER Carey - Last Filed: 11/27/20 17:07> DS: Data Data Completed and Pending Pending studies at discharge: Pending at discharge 11/26/20 13:09 Cytology [PTH] Stat <TEJINDER Carey - Last Filed: 11/27/20 17:07> Labs on day of discharge: Laboratory Results - last 24 hr 11/26/20 11/26/20 11/26/20 15:00 15:00 15:00 WBC RBC Hgb Hct MCV MCH MCHC RDW Plt Count MPV Immature Gran % (Auto) Neut % (Auto) Lymph % (Auto) [place] % (Auto) Eos % (Auto) Baso % (Auto) Lymph # (Auto) [place] # (Auto) Eos # (Auto) Baso # (Auto) Abs Immat Gran (auto) Absolute Neuts (auto) Absolute Nucleated RBC Nucleated RBC % (auto) PT INR Sodium Potassium Chloride Carbon Dioxide Anion Gap BUN Creatinine Estim Creat Clear Calc Estimated GFR Random Glucose Calcium Total Bilirubin Direct Bilirubin AST ALT Alkaline Phosphatase Ammonia Total Protein Albumin Urine Osmolality Peritoneal pH 7.54 Peritoneal WBC 0.232 Peritoneal RBC < 0.002 Periton Neutrophils 2 Periton Lymphocytes 13 Peritoneal Monocytes 67 Peritoneal Eosinophils 0 Peritoneal Basophils 0 Peritoneal Other Cells 18 Peritoneal Tot Protein 1.5 Peritoneal Albumin 0.6 Peritoneal LDH 62 Peritoneal Glucose 105 Peritoneal Amylase 12 11/26/20 11/26/20 11/26/20 18:45 19:25 19:25 WBC RBC Hgb 11.3 L Hct 30.5 L MCV MCH MCHC RDW Plt Count MPV Immature Gran % (Auto) Neut % (Auto) Lymph % (Auto) [place] % (Auto) Eos % (Auto) Baso % (Auto) Lymph # (Auto) [place] # (Auto) Eos # (Auto) Baso # (Auto) Abs Immat Gran (auto) Absolute Neuts (auto) Absolute Nucleated RBC Nucleated RBC % (auto) PT INR Sodium 129 L 129 L Potassium 3.7 3.2 L Chloride 95 L 96 Carbon Dioxide 25 23 Anion Gap 13 13 BUN 10 10 Creatinine 1.06 1.03 Estim Creat Clear Calc 88.3 90.9 Estimated GFR > 60 > 60 Random Glucose 96 114 Calcium 8.3 L 8.2 L Total Bilirubin Direct Bilirubin AST ALT Alkaline Phosphatase Ammonia Total Protein Albumin Urine Osmolality Peritoneal pH Peritoneal WBC Peritoneal RBC Periton Neutrophils Periton Lymphocytes Peritoneal Monocytes Peritoneal Eosinophils Peritoneal Basophils Peritoneal Other Cells Peritoneal Tot Protein Peritoneal Albumin Peritoneal LDH Peritoneal Glucose Peritoneal Amylase 11/26/20 11/27/20 11/27/20 21:48 04:04 04:04 WBC 9.2 RBC 2.91 L Hgb 10.5 L Hct 28.7 L MCV 98.6 H MCH 36.1 H MCHC 36.6 H RDW 17.3 H Plt Count 109 L MPV 10.3 Immature Gran % (Auto) 0.8 H Neut % (Auto) 83.2 H Lymph % (Auto) 8.2 L [place] % (Auto) 7.5 Eos % (Auto) 0.2 Baso % (Auto) 0.1 Lymph # (Auto) 0.8 L [place] # (Auto) 0.7 Eos # (Auto) 0.0 Baso # (Auto) 0.0 Abs Immat Gran (auto) 0.07 H Absolute Neuts (auto) 7.7 Absolute Nucleated RBC 0.000 Nucleated RBC % (auto) 0.0 PT INR Sodium 126 L Potassium 3.3 Chloride 96 Carbon Dioxide 22 Anion Gap 11 L BUN 11 Creatinine 1.00 Estim Creat Clear Calc 93.6 Estimated GFR > 60 Random Glucose 144 H Calcium 7.8 L Total Bilirubin 26.7 H Direct Bilirubin 19.1 H AST 114 H ALT 34 Alkaline Phosphatase 155 H Ammonia Total Protein 6.1 L Albumin 2.4 L Urine Osmolality 340 L Peritoneal pH Peritoneal WBC Peritoneal RBC Periton Neutrophils Periton Lymphocytes Peritoneal Monocytes Peritoneal Eosinophils Peritoneal Basophils Peritoneal Other Cells Peritoneal Tot Protein Peritoneal Albumin Peritoneal LDH Peritoneal Glucose Peritoneal Amylase 11/27/20 11/27/20 11/27/20 04:04 04:04 07:46 WBC RBC Hgb Hct MCV MCH MCHC RDW Plt Count MPV Immature Gran % (Auto) Neut % (Auto) Lymph % (Auto) [place] % (Auto) Eos % (Auto) Baso % (Auto) Lymph # (Auto) [place] # (Auto) Eos # (Auto) Baso # (Auto) Abs Immat Gran (auto) Absolute Neuts (auto) Absolute Nucleated RBC Nucleated RBC % (auto) PT 26.2 H INR 2.2 H Sodium Potassium Chloride Carbon Dioxide Anion Gap BUN Creatinine Estim Creat Clear Calc Estimated GFR Random Glucose Calcium Total Bilirubin Direct Bilirubin AST ALT Alkaline Phosphatase Ammonia 72 H Total Protein Albumin Cancelled Urine Osmolality Peritoneal pH Peritoneal WBC Peritoneal RBC Periton Neutrophils Periton Lymphocytes Peritoneal Monocytes Peritoneal Eosinophils Peritoneal Basophils Peritoneal Other Cells Peritoneal Tot Protein Peritoneal Albumin Peritoneal LDH Peritoneal Glucose Peritoneal Amylase 11/27/20 12:44 WBC RBC Hgb Hct MCV MCH MCHC RDW Plt Count MPV Immature Gran % (Auto) Neut % (Auto) Lymph % (Auto) [place] % (Auto) Eos % (Auto) Baso % (Auto) Lymph # (Auto) [place] # (Auto) Eos # (Auto) Baso # (Auto) Abs Immat Gran (auto) Absolute Neuts (auto) Absolute Nucleated RBC Nucleated RBC % (auto) PT INR Sodium 129 L Potassium 3.6 Chloride 96 Carbon Dioxide 24 Anion Gap 13 BUN Creatinine 1.03 Estim Creat Clear Calc 90.9 Estimated GFR > 60 Random Glucose 140 H Calcium Total Bilirubin Direct Bilirubin AST ALT Alkaline Phosphatase Ammonia Total Protein Albumin Urine Osmolality Peritoneal pH Peritoneal WBC Peritoneal RBC Periton Neutrophils Periton Lymphocytes Peritoneal Monocytes Peritoneal Eosinophils Peritoneal Basophils Peritoneal Other Cells Peritoneal Tot Protein Peritoneal Albumin Peritoneal LDH Peritoneal Glucose Peritoneal Amylase Preliminary micro results at discharge 11/26/20 15:00 Routine Culture - Preliminary Abdominal Fluid No growth to date. Anaerobic Culture - Preliminary No growth to date. 11/25/20 21:52 Blood Culture - Preliminary Blood - Venous No growth after 24 hours. 11/25/20 21:52 Blood Culture - Preliminary Blood - Venous No growth after 24 hours. <TEJINDER Carey - Last Filed: 11/27/20 17:07> Discharge Plan Discharge Patient Disposition: [facility] <TEJINDER Carey - Last Filed: 11/27/20 17:07> Referrals: [facility] [Outside] (TERTIARY LIVER SPECIALIST) Physician,None [Primary Care Provider] - <TEJINDER Carey - Last Filed: 11/27/20 17:07> Discharge Medications: New furosemide 10 mg/mL Solution 20 mg IVPUSH DAILY Qty: 2 RF: 0 prednisone 20 mg Tablet 40 mg PO DAILY Qty: 1 RF: 0 folic acid 1 mg Tablet 1 mg PO DAILY 10 Days Qty: 10 RF: 0 thiamine mononitrate (vit B1) 100 mg Tablet 100 mg PO DAILY Qty: 1 RF: 0 lactulose 20 gram/30 mL Solution 20 g PO BID Qty: 1200 RF: 0 lorazepam 2 mg/mL Solution 1 mg IVPUSH Q4H PRN (Reason: Alcohol Withdrawal) Qty: 1 RF: 0 <TEJINDER Carey - Last Filed: 11/27/20 17:07> Discharge Orders: Discharge Order (Routine); Ordered 11/28/20 Ordered By: Yanni Bird <TEJINDER Carey - Last Filed: 11/27/20 17:07> Activity on Discharge: As tolerated <TEJINDER Carey - Last Filed: 11/27/20 17:07> As tolerated <Valorie Cardenas MD - Last Filed: 12/01/20 16:33> Stand Alone Forms: Patient Portal Discharge page <TEJINDER Carey - Last Filed: 11/27/20 17:07> Care Plan Goals: See Below <TEJINDER Carey - Last Filed: 11/27/20 17:07> Health Concerns: Liver failure Anemia/thrombocytopenia Alcohol dependence <TEJINDER Carey - Last Filed: 11/27/20 17:07> Plan of Treatment: Transfer to tertiary care facility for management of liver failure <TEJINDER Carey - Last Filed: 11/27/20 17:07> Assessment: - <TEJINDER Carey - Last Filed: 11/27/20 17:07> Discharge Date/Time: 11/28/20 21:50 <TEJINDER Carey - Last Filed: 11/27/20 17:07>
[2020-11-28 19:59] VITALS: BP 127/72; PULSE 92; RESP 18; TEMP 36.2; O2SAT 98
[2020-11-29 04:45] LABS: Hepatitis A Antibody IgM 0.13 Index (0-0.79); ~Hepatitis A Antibody IgM Nonreactive (Nonreactive)
[2020-11-29 13:57] LABS: IgA 1250 mg/dL (47-310); IgG 2302 mg/dL (600-1640); IgM 177 mg/dL (50-300)
[2020-11-29 17:07] LABS: Zinc 26 mcg/dL (60-130)
[2020-11-29 17:07] LABS: Copper, plasma 78 mcg/dL (70-175)
[2020-11-29 20:42] LABS: Ceruloplasmin 22 mg/dL (18-36)
[2020-12-01 22:37] LABS: Transglutaminase Ab IgG 2 U/mL; Transglutaminase IgA 1 U/mL
[2020-12-02 21:16] LABS: Alpha 1 Anti-trypsin 189 mg/dL (83-199)
[2020-12-04 11:57] LABS: Smooth Muscle Antibody <20 U (<20)
== END 2020-11-28 21:50 | disposition short-term general hospital (02) | DRG 280 ==
LOC: HO.ED 11-26 00:20 → HO.EDOVER 11-26 00:57 → HO.S3 11-26 13:05
PROVIDERS: Family Medicine; Internal Medicine Gastroenterology; Internal Medicine Hypertension Specialist; Nurse Practitioner Acute Care; Physician Assistant Medical; Radiology Diagnostic Radiology; Admitting Provider Internal Medicine; Emergency Provider Emergency Medicine Emergency Medical Services; Visit Provider Hospitalist
PROC: 0W9G3ZZ Drainage of Peritoneal Cavity, Percutaneous Approach (ICD-10-PCS; principal; 2020-11-26 14:00)
DX: K70.31 Alcoholic cirrhosis of liver with ascites (principal); K70.40 Alcoholic hepatic failure without coma; D68.9 Coagulation defect, unspecified; E22.2 Syndrome of inappropriate secretion of antidiuretic hormone; E44.0 Moderate protein-calorie malnutrition; E88.09 Other disorders of plasma-protein metabolism, not elsewhere classified; F10.10 Alcohol abuse, uncomplicated; D63.8 Anemia in other chronic diseases classified elsewhere; Z20.822 Contact with and (suspected) exposure to COVID-19; R33.9 Retention of urine, unspecified; Z68.26 Body mass index [BMI] 26.0-26.9, adult; Z88.0 Allergy status to penicillin; Z79.899 Other long term (current) drug therapy
CPT/HCPCS: 36415; 49083; 70450; 72125; 76700; 80048; 80076; 80143; 80307; 80320; 81001; 81003; 82040; 82042; 82103; 82140; 82150; 82272; 82390; 82525; 82728; 82784; 82945; 82947; 82977; 83516; 83540; 83605; 83615; 83880; 83930; 83935; 83986; 84155; 84157; 84295; 84630; 85014; 85018; 85025; 85610; 86038; 86039; 86255; 86704; 86706; 86709; 86803; 87040; 87071; 87073; 87116; 87205; 87340; 87635; 88112; 88305; 89051; 93005; 93975; 99285; C1758; J1200; J1940; J2060; J2560; J3430; P9047

== ENCOUNTER 2024-06-22 10:47 | Outpatient (AMB) | payer MEDICAID, SELFPAY ==
--- NOTE | 2024-06-22 10:48 | MHC.OFFVIS ---
Vital Signs 06/22/24 10:57 Height 5 ft 7 in Weight 190 lb BMI 29.8 BP 147/73 H Blood Pressure Location Rt brachial Position Sitting Pulse 73 Intake Visit Reasons: hernia Intake Note: This patient presents for hernia assessment. Pt c/o; bulge, discomfort, no changes bowel habits, History of liver transplant 2019. Do All Operator Required: No Accompanied by: Self / Same As Patient Allergies Penicillins Allergy (Verified 06/22/24 11:06) Swelling Medication List - Last Reconciled 06/22/24 by Carlos Lee MD acamprosate 666 mg PO TID amlodipine 10 mg PO DAILY ergocalciferol (vitamin D2) 1,250 mcg PO QWEEK folic acid 1 mg PO DAILY 10 days furosemide 20 mg See Protocol IVPUSH DAILY gabapentin 600 mg PO DAILY labetalol 400 mg PO BID lactulose 20 grams (30 mL) PO BID lidocaine 5% 1 patch topical DAILY lorazepam 1 mg (0.5 mL) IVPUSH Q4H PRN melatonin mg PO multivitamin with folic acid 400 mcg (Daily-Amaris (with folic acid)) 1 tab PO DAILY prednisone 40 mg (2 x 20 mg) PO DAILY tacrolimus 2 mg PO BID thiamine mononitrate (vit B1) 100 mg PO DAILY HPI HPI hernia: Details: 44-year-old male referred for an hernia. He had undergone liver transplant in in [facility] in 2020 because of liver failure, cirrhosis secondary to alcohol abuse. He had been doing well since that time. However for the past year and a half, he has been noticing this mass on the right side of his abdomen along his old incision. This had increased in size significantly over the past few months and has been causing him a lot of pain the past 2-3 months. He was seen by [facility] for the incisional hernia. However, he was told to go to [facility] because of his insurance being not covered there. He was seen by a surgeon in [facility] but surgery had been delayed by several months and he wanted to for another surgeon to have the surgery done the stating that he was not happy with care in [facility] He denies GI complaints. He says he is feeling well overall. He does have chronic pain now from the large hernia. He remains on tacrolimus for immunosuppression after his transplant. He says that he no longer on prednisone. [facility] Medical History (Updated 06/22/24 @ 11:10 by Carlos Lee MD) Incisional hernia Immunosuppression Liver cirrhosis Surgical History Hx of surgical procedure (~2019) Social History Household Members: Family Housing: House Do you presently have visiting nurse or other home services: No service: No Current occupational status: unemployed Review of Systems Const Denies chills and Denies fever(s) Card Denies chest pain, Denies dyspnea and Denies dyspnea on exertion Resp Denies cough, Denies dyspnea and Denies dyspnea on exertion GI Denies hematochezia and Denies change in bowel habits Denies hematuria and Denies difficulty urinating Musc Denies back pain and Denies limited range of motion Neuro Denies focal weakness and Denies convulsions Psych Denies depression and Denies mood swings Physical Exam Vital Signs: Last Vital Signs Pulse 73 06/22/24 10:57 BP 147/73 H 06/22/24 10:57 BMI result Body Mass Index 29.8 Const General: comfortable and no acute distress Orientation/consciousness: patient oriented x3 Neck Neck: Yes no lymphadenopathy Resp Auscultation: clear to auscultation bilaterally Cardio Rhythm: regular rhythm GI Other: Large hernia on the right side, only partially reducible, with defect probably measuring about a cm in the widest dimension Another hernia is seen on the area just above the umbilicus, nonreducible, probably about 3 cm in size Palpation (GI): Soft to palpation, nontender and no guarding Neuro General: patient oriented x3 Assessment & Plan Assessment & Plan (1) Incisional hernia: Code(s): K43.2 - Incisional hernia without obstruction or gangrene Category: Medical Plan: He has a large incisional hernia on his previous right subcostal incision, now with a partially reducible hernia contents. He has significant discomfort and pain on the area because of the large hernia. This was a smaller hernia in the area just above the umbilicus I will review all his images from [facility] as he was being seen there. I will send him for PAT as well because of his history of liver transplant as well as the suppression currently. I did have a discussion with him about the technique of repair of the hernia on both areas with mesh. I reviewed the risks including but not limited to bleeding, infections, injury to other organs including bowel, recurrence, postop pain, as well as the benefits and alternatives. Medications: New tacrolimus 2 mg PO BID melatonin mg PO ergocalciferol (vitamin D2) 1,250 mcg PO QWEEK multivitamin with folic acid 400 mcg (Daily-Amaris (with folic acid)) 1 tab PO DAILY labetalol 400 mg PO BID gabapentin 600 mg PO DAILY amlodipine 10 mg PO DAILY acamprosate 666 mg PO TID lidocaine 5% 1 patch topical DAILY Coding Level of Care Code New Pt Level 3 (92353) Diagnoses Incisional hernia K43.2
[2024-06-22 10:57] VITALS: BP 147/73; PULSE 73; BMI 29.8
== END 2024-06-22 11:14 | disposition home or self-care (01) ==
PROVIDERS: PCP Internal Medicine; Visit Provider Surgery
DX: K43.2 Incisional hernia without obstruction or gangrene (principal)
CPT/HCPCS: 99203

== ENCOUNTER → 2024-06-22 10:47 | Outpatient (BNVA) | payer MEDICAID, SELFPAY | PROVIDERS: PCP Internal Medicine; Visit Provider Surgery | DX: K43.2 Incisional hernia without obstruction or gangrene (principal) | CPT/HCPCS: 99202 ==

== ENCOUNTER 2024-08-08 15:03 | Outpatient (REF) | payer OTHER, SELFPAY | END 2024-08-08 15:04 | disposition home or self-care (01) | LOC: CF 15:03 | DX: Z13.89 Encounter for screening for other disorder (principal) ==

== ENCOUNTER → 2024-08-22 19:23 | Outpatient (BNV) | payer OTHER, SELFPAY | PROVIDERS: PCP Internal Medicine; Visit Provider Radiology Diagnostic Radiology | DX: K42.9 Umbilical hernia without obstruction or gangrene (principal) | CPT/HCPCS: 74177; 76705 ==

== ENCOUNTER 2024-08-22 21:51 | Inpatient (IN) | payer OTHER, SELFPAY ==
--- NOTE | ~2024-08-22 | US_ITS ---
CLINICAL HISTORY: ? strangulated umbilical hernia US abdomen limited Comparison: None Findings: There is a supraumbilical hernia measuring about 7.3 x 5.6 x 6.2 cm although the margins are not well-defined. The hernia contains fat and fluid-filled bowel uncertain if small or large bowel. There is no evidence of free fluid within the hernia. Evaluation for strangulation and bowel obstruction is limited on ultrasound. IMPRESSION: Supraumbilical hernia as above. Consider contrast-enhanced CT if not recently performed. This document has been electronically signed by: Cyril Farooq MD on 08/22/2024 20:48:03
--- NOTE | ~2024-08-22 | CT_ITS ---
CLINICAL HISTORY: Incarcerated periumbilical hernia? CT abdomen and pelvis with contrast Comparison: US - US ABDOMEN LIMITED - 08/22/24 20:11 EST Findings: There is minimal atelectasis or scarring in the right lower lobe. Patient is status post liver transplantation. There is a small cyst in the right lobe of the liver. Tiny hypodensity in the liver anteriorly is likely a cyst, but too small to characterize. The gallbladder is absent as expected post liver transplantation. The pancreas, spleen, adrenal glands, and kidneys are unremarkable. There is a supraumbilical hernia containing a short segment of dilated small bowel. There is moderate to severe luminal narrowing of the bowel at the neck of the hernia. The small bowel proximal to the hernia is mildly dilated and the bowel distal to the hernia is decompressed consistent with small-bowel obstruction. There is no fluid or fat stranding around the herniated bowel. There is no bowel wall thickening and enhancement of the bowel wall appears normal. There is a large wide neck hernia in the right lateral abdominal wall containing unobstructed small bowel and right hemicolon. The appendix is within the hernia and appears normal. There is mild colonic diverticulosis. The aorta and IVC are normal. There are no enlarged lymph nodes. There is no acute fracture or suspicious lytic or sclerotic lesion. IMPRESSION: 1. Supraumbilical hernia containing a short segment of small bowel with findings consistent with early or partial small bowel obstruction. There are no CT findings of ischemia/strangulation. 2. Large right lateral abdominal wall hernia containing unobstructed small bowel and colon. 3. Additional chronic findings as above. This document has been electronically signed by: Cyril Farooq MD on 08/22/2024 23:20:43
[2024-08-22 19:21] VITALS: BP 154/90; PULSE 83; RESP 18; TEMP 36.9; O2SAT 98; BMI 30.5
--- NOTE | 2024-08-22 19:22 | ED_ITS ---
HPI - General Adult General Chief complaint: Abdominal Pain Stated complaint: hernia near the belly button Time Seen by Provider: 08/22/24 21:49 Source: patient Mode of arrival: ambulatory Limitations: no limitations History of Present Illness ED Provider: HPI narrative: Patient with large right lateral abdominal wall hernia with this new periumbilical hernia for about 2 months comes here as since 16:00 noticed pain in the hernia with nausea no vomiting patient feels slightly bloated has not eaten any food since then has not moved any flatus since then feels slightly nauseated but no vomiting patient does have a large incisional hernia on the right lateral abdominal wall after Liver transplant surgery in 2020 last meal was at 14:30 Related Data Home Medications ?Medication ?Instructions ?Recorded ?Confirmed acamprosate 333 mg tablet,delayed 666 mg PO TID 06/22/24 06/22/24 release amlodipine 10 mg tablet 10 mg PO DAILY 06/22/24 06/22/24 ergocalciferol (vitamin D2) 1,250 1,250 mcg PO QWEEK 06/22/24 06/22/24 mcg (50,000 unit) capsule gabapentin 600 mg tablet 600 mg PO DAILY 06/22/24 06/22/24 labetalol 200 mg tablet 400 mg PO BID 06/22/24 06/22/24 lidocaine 5 % topical patch 1 patch topical DAILY 06/22/24 06/22/24 melatonin 3 mg tablet mg PO 06/22/24 06/22/24 multivitamin with folic acid 400 1 tab PO DAILY 06/22/24 06/22/24 mcg tablet (Daily-Amaris (with folic acid)) tacrolimus 1 mg capsule, 2 mg PO BID 06/22/24 06/22/24 immediate-release Previous Rx's ?Medication ?Instructions ?Recorded folic acid 1 mg tablet 1 mg PO DAILY 10 days #10 tabs 11/27/20 furosemide 10 mg/mL injection 20 mg IVPUSH DAILY #2 mL 11/27/20 solution lactulose 20 gram/30 mL oral 20 g (30 mL) PO BID #1,200 mL 11/27/20 solution lorazepam 2 mg/mL injection 1 mg (0.5 mL) IVPUSH Q4H PRN 11/27/20 solution Alcohol Withdrawal #1 mL prednisone 20 mg tablet 40 mg (2 x 20 mg) PO DAILY #1 tab 11/27/20 thiamine mononitrate (vit B1) 100 100 mg PO DAILY #1 tab 11/27/20 mg tablet Allergies Allergy/AdvReac Type Severity Reaction Status Date / Time Penicillins Allergy Swelling Verified 08/22/24 19:22 Review of Systems 2 Review of Systems: Yes all other systems are reviewed and are negative [facility] Past Medical History Medical History (Updated 08/23/24 @ 00:31 by Carlos Lee MD) Incarcerated ventral hernia History of alcohol abuse Incisional hernia Immunosuppression Liver cirrhosis Surgical History Hx of surgical procedure (~2019) Social History Social History Household Members: Family Housing: House Do you presently have visiting nurse or other home services: No Advance Directives: No Advance Directives Information Provided: No service: No Current occupational status: unemployed Physical Exam ED Vital Signs: Vital Signs - 24 hr 08/22/24 19:21 Temperature 98.4 F Pulse Rate 83 Respiratory Rate 18 Blood Pressure 154/90 H Pulse Oximetry 98 Oxygen Delivery Method Room Air BMI result Body Mass Index 30.5 Appearance: Alert. Oriented X3. No acute distress. Eyes: No pallor or icterus ENT: Pharynx normal. Oral Mucosa moist Neck: Normal inspection. Neck supple. CVS: Normal heart rate and rhythm. Pulses normal. Respiratory: No respiratory distress. Equal air entry bilateral, no wheezing/rales/rhonchi Abdomen: Soft large periumbilical hernia tender unable to reduce Bowel sounds are present, no mass palpable, no CVA tenderness large right lateral wall hernia Skin: Skin warm and dry. Normal skin color. Normal skin turgor. Extremities: No lower extremity edema. No calf tenderness Neuro: Oriented X 3. No motor deficit. No sensory deficit. Course Course Course Narrative: This is a rapid medical exam performed by Lavonne Wasserman NP: Additional HPI, ROS, PE not included below will be deferred to primary provider. Patient is a 44-year-old male with history of liver cirrhosis, alcohol abuse, immunosuppression, and incisional hernia presenting to the ED with complaint of pain and firmness to his hernia since around noon today. Plan: labs and U/S Medications Administered Discontinued Medications Generic Name Dose Route Start Last Admin Trade Name Freq PRN Reason Stop Dose Admin Sodium Chloride 1,000 mls @ 999 mls/hr 08/22/24 22:09 08/22/24 23:31 Ns IV 08/22/24 23:09 Infused .Q1H1M ONE Infusion Iohexol 85 ml 08/22/24 22:28 08/22/24 22:28 Iohexol 350 Mg/Ml 100 Ml Infus..Btl IV 08/22/24 22:29 85 ml ONCE ONE Administration Lidocaine HCl 1 appl 08/22/24 23:52 08/23/24 00:00 Lidocaine Hcl 4 % [id number] 4 Ml TOPICAL 08/22/24 23:53 Not Given ONCE ONE Medical Decision Making Medical Decision Making [facility] Narrative: Patient with periumbilical hernia with early small-bowel obstruction incarcerated hernia case discussed Dr. Lee will take patient to OR Differential Diagnosis Differential Diagnoses: The differential diagnosis associated with the presentation includes Lab Data [facility] Lab Attestation statement: I reviewed the patient's lab results. 08/22/24 19:38 08/22/24 19:38 Labs: Lab Results 08/22/24 08/22/24 Range/Units 19:38 22:21 WBC 12.3 H (4.8-10.8) X10*3/uL RBC 5.34 (4.60-5.80) X10*6/uL Hgb 15.8 (14.0-18.0) g/dl Hct 43.0 (42.0-52.0) % MCV 80.5 (80.0-98.0) fL MCH 29.6 (27.0-33.0) pg MCHC 36.7 H (31.0-36.0) g/dl RDW 12.8 (11.0-16.0) % Plt Count 254 (160-400) X10*3/uL MPV 9.0 L (9.4-12.4) fL Immature Gran % (Auto) 0.3 (0.0-0.4) % Neut % (Auto) 76.7 H (45-73) % Lymph % (Auto) 17.4 L (20-40) % [place] % (Auto) 2.7 (2-11) % Eos % (Auto) 2.7 (0-4) % Baso % (Auto) 0.2 (0-2) % Lymph # (Auto) 2.1 (1.2-4.9) X10*3/uL [place] # (Auto) 0.3 (0.1-1.2) X10*3/uL Eos # (Auto) 0.3 (0.0-0.4) X10*3/uL Baso # (Auto) 0.0 (0.0-0.2) X10*3/uL Abs Immat Gran (auto) 0.04 H (0.00-0.03) X10*3/uL Absolute Neuts (auto) 9.4 H (2.0-8.3) x10*3/uL Absolute Nucleated RBC 0.000 (0.0-0.012) X10*3/uL Nucleated RBC % (auto) 0.0 (0.0-0.2) /100WBC PT 11.2 (10.9-12.4) SEC INR 1.0 (0.9-1.1) Sodium 137 (135-145) mmol/L Potassium 3.7 (3.3-5.1) mmol/L Chloride 102 (96-108) mmol/L Carbon Dioxide 23 (22-29) mmol/L Anion Gap 16 (12-20) BUN 11 (9-16) mg/dL Creatinine 1.15 (0.5-1.4) mg/dL Estim Creat Clear Calc 85.8 Estimated GFR > 60 Random Glucose 160 H (60-115) mg/dL Lactic Acid 1.0 (0.5-2.0) mmol/L Calcium 9.6 D (8.4-10.2) mg/dL Total Bilirubin 0.5 (0.0-1.0) mg/dL AST 24 (5-37) U/L ALT 24 (0-40) U/L Alkaline Phosphatase 153 H (39-117) U/L Total Protein 8.1 H (6.5-8.0) g/dL Albumin 4.4 (3.5-5.0) g/dL Independent Interpretation I performed an independent interpretation of an: CT Scan Radiology Impression Discussion of test interpretation with radiology: I have reviewed the radiologist's reading. Radiologist Impression: [address] [address] [address] Scan Report Signed with Addenda Patient: David Cee MR#: [id number] : 1980 Acct:[id number] Age/Sex: 44 / M ADM Date: 08/22/24 Loc: HO.ED Attending Dr: Ordering Physician: Facundo Camacho MD Date of Service: 08/22/24 Procedure(s): CT abdomen pelvis w IV con Accession Number(s): [id number] cc: Rigo Gamboa MD; Facundo Camacho MD~ Report Number: [id number]: Total DLP = 608.00 mGy-cm ADDENDUMThis document has been electronically signed by: Cyril Farooq MD on 08/22/2024 23:20:43 ADDENDUM: This report was discussed with Doug Garcia on Aug 22, 2024 23:21:00 EST. This document has been electronically signed by: Martha Vivas on 08/22/2024 23:24:30 Addendum Dictated By: Cyril Farooq MD Addendum Signed By: <Electronically signed by Cyril Farooq MD in OV> 08/22/242324 Addendum Cosigned By: DD/ TD/TT: 08/22/24 CLINICAL HISTORY: Incarcerated periumbilical hernia? CT abdomen and pelvis with contrast Comparison: US - US ABDOMEN LIMITED - 08/22/24 20:11 EST Findings: There is minimal atelectasis or scarring in the right lower lobe. Patient is status post liver transplantation. There is a small cyst in the right lobe of the liver. Tiny hypodensity in the liver anteriorly is likely a cyst, but too small to characterize. The gallbladder is absent as expected post liver transplantation. The pancreas, spleen, adrenal glands, and kidneys are unremarkable. There is a supraumbilical hernia containing a short segment of dilated small bowel. There is moderate to severe luminal narrowing of the bowel at the neck of the hernia. The small bowel proximal to the hernia is mildly dilated and the bowel distal to the hernia is decompressed consistent with small-bowel obstruction. There is no fluid or fat stranding around the herniated bowel. There is no bowel wall thickening and enhancement of the bowel wall appears normal. There is a large wide neck hernia in the right lateral abdominal wall containing unobstructed small bowel and right hemicolon. The appendix is within the hernia and appears normal. There is mild colonic diverticulosis. The aorta and IVC are normal. There are no enlarged lymph nodes. There is no acute fracture or suspicious lytic or sclerotic lesion. IMPRESSION: 1. Supraumbilical hernia containing a short segment of small bowel with findings consistent with early or partial small bowel obstruction. There are no CT findings of ischemia/strangulation. 2. Large right lateral abdominal wall hernia containing unobstructed small bowel and colon. 3. Additional chronic findings as above. This document has been electronically signed by: Cyril Farooq MD on 08/22/2024 23:20:43 Discharge Plan Discharge Clinical Impression: Incarcerated umbilical hernia Patient Disposition: Admitted As Inpatient
[2024-08-22 19:42] LABS: MANUAL DIFF FLAG NO
[2024-08-22 19:46] LABS: Basophils Percent Auto 0.2 % (0-2); Eosinophils Absolute Auto 0.3 X10*3/uL (0.0-0.4); Eosinophils Percent Auto 2.7 % (0-4); Hemoglobin 15.8 g/dl (14.0-18.0); Imm Gran Abs Auto 0.04 X10*3/uL (0.00-0.03); Imm Gran Pct Auto 0.3 % (0.0-0.4); Lymphocytes Absolute Auto 2.1 X10*3/uL (1.2-4.9); Lymphocytes Percent Auto 17.4 % (20-40); Mean Corpuscular HGB Conc 36.7 g/dl (31.0-36.0); Mean Corpuscular Hemoglobin 29.6 pg (27.0-33.0); Mean Corpuscular Volume 80.5 fL (80.0-98.0); Monocytes Absolute Auto 0.3 X10*3/uL (0.1-1.2); Monocytes Percent Auto 2.7 % (2-11); Neutrophils Absolute Auto 9.4 x10*3/uL (2.0-8.3); Neutrophils Percent Auto 76.7 % (45-73); Platelet Count 254 X10*3/uL (160-400); Red Blood Count 5.34 X10*6/uL (4.60-5.80); Red Cell Distribution Width 12.8 % (11.0-16.0); White Blood Count 12.3 X10*3/uL (4.8-10.8)
[2024-08-22 19:54] LABS: Prothrombin Time 11.2 SEC (10.9-12.4)
[2024-08-22 20:10] LABS: Alanine Aminotransferase 24 U/L (0-40); Albumin Level 4.4 g/dL (3.5-5.0); Alkaline Phosphatase 153 U/L (39-117); Anion Gap 16 (12-20); Aspartate Amino Transferase 24 U/L (5-37); Bilirubin Total 0.5 mg/dL (0.0-1.0); Blood Urea Nitrogen 11 mg/dL (9-16); Calcium 9.6 mg/dL (8.4-10.2); Carbon Dioxide 23 mmol/L (22-29); Chloride 102 mmol/L (96-108); Creatinine Clr Calc Pharmacy 85.8; Estimated Glomerular Filt Rate > 60; Glucose Random 160 mg/dL (60-115); Potassium 3.7 mmol/L (3.3-5.1); Sodium 137 mmol/L (135-145); Total Protein 8.1 g/dL (6.5-8.0)
[2024-08-22] MEDS: iohexoL 350 MG/ML 100 ML INFUS..BTL 85 ML IV (22:28)
[2024-08-22] MEDS: 0.9 % Sodium Chloride 1,000 ML 999 ML IV (22:30)
--- NOTE | 2024-08-22 22:38 | PC.NURSE ---
Patient away for CT scan at this time. 18g IV access established in left AC by this RN. Lactic acid drawn and sent for analysis.
[2024-08-23] VITALS (10 sets, daily range): BP systolic 104–158; BP diastolic 55–96; PULSE 87–106; RESP 16–18; TEMP 36.3–37.7; O2SAT 92–96
--- NOTE | 2024-08-23 00:20 | PC.NURSE ---
Dr. Lee (GI/Surgery) came to bedside to speak with patient. This RN was about to begin inserting NG tube upon arrival. Per Dr. Lee, instructed to hold NG tube insertion. Order cancelled and Lidocaine 4% returned to Pyxis (unopened). NG no longer required at this time. Denies nausea/vomiting at this time. Plan to go to OR today for hernia repair.
--- NOTE | 2024-08-23 00:27 | P.HPGS_ITS ---
History of Present Illness History of Present Illness Date of Service: 08/25/24 Chief complaint: hernia near the belly button Narrative: David Cee is a 44 year old male here in the ER for pain on the supraumbilical area. He has noted this mass on the supra umbilical area for about 2 months now. He says that despite some discomfort, this did not really cause any pain. However, starting at around 04:00 o'clock this afternoon, he has been noticing significant pain and tenderness on the area. He describes enausea without any vomiting. He says he feels a little bloated. He also says that the hernia on the supraumbilical area has been much firmer and bigger the past few hours. He is also known to have a large hernia on the right flank area after liver transplant. He had undergone liver transplant in in [facility] in 2020 because of liver failure, cirrhosis secondary to alcohol abuse. He had been doing well since that time. However for the past year and a half, he has been noticing this mass on the right side of his abdomen along his old incision. This had increased in size significantly over the past few months and has been causing pain as well for several months now. He says that this is not what is bothering him today. He denies GI complaints. He says he is feeling well overall. He does have chronic pain from the large hernia which is has his usual baseline. He remains on tacrolimus for immunosuppression after his transplant. He says that he no longer on prednisone. Review of Systems Constitutional: Constitutional: Denies chills and Denies fever(s) Cardiovascular: Cardiovascular: Denies chest pain, Denies dyspnea and Denies dyspnea on exertion Respiratory: Respiratory: Denies cough, Denies dyspnea and Denies dyspnea on exertion Gastrointestinal: Gastrointestinal: Denies hematochezia and Denies change in bowel habits Genitourinary: Genitourinary: Denies hematuria and Denies difficulty urinating Musculoskeletal: Musculoskeletal: Denies back pain and Denies limited range of motion Neurologic: Denies focal weakness and Denies convulsions Psychiatric: Psychiatric: Denies depression and Denies mood swings PMFSH Past Medical History Medical History Incarcerated ventral hernia History of alcohol abuse Incisional hernia Immunosuppression Liver cirrhosis Surgical History Surgical History (Updated 08/23/24 @ 06:38 by Rose Marie Hubbard PA-C) Hx of surgical procedure (~2019) Social History Social History Household Members: Family Housing: House Do you presently have visiting nurse or other home services: No Patient Tobacco Use Status: Never used Tobacco service: No Current occupational status: unemployed Meds Allergies Allergy/AdvReac Type Severity Reaction Status Date / Time Penicillins Allergy Swelling Verified 08/22/24 19:22 Active Medications: Current Medications Cefazolin Sodium/Dextrose (Ancef) 2 gm in 50 mls @ 100 mls/hr IV PREOP ONE Stop: 08/23/24 00:36 Morphine Sulfate (Morphine Sulfate 2 Mg/Ml Cartridge) 3 mg IVPUSH Q3H PRN; Protocol PRN Reason: Pain, Severe (Pain Scale 7-10) Home Medications ?Medication ?Instructions ?Recorded ?Confirmed ?Last Taken ?Type amlodipine 10 mg tablet 10 mg PO DAILY 06/22/24 08/23/24 08/22/24 History ergocalciferol (vitamin D2) 1,250 1,250 mcg PO WE 06/22/24 08/23/24 08/16/24 History mcg (50,000 unit) capsule labetalol 200 mg tablet 400 mg PO DAILY 06/22/24 08/23/24 08/22/24 History melatonin 3 mg tablet 6 mg PO BEDTIME 06/22/24 08/23/24 08/22/24 History multivitamin with folic acid 400 1 tab PO DAILY 06/22/24 08/23/24 08/22/24 History mcg tablet (Daily-Amaris (with folic acid)) tacrolimus 1 mg capsule, 2 mg PO BID 06/22/24 08/23/24 08/22/24 History immediate-release labetalol 200 mg tablet 400 mg PO BEDTIME PRN BP range of 08/23/24 08/23/24 Unknown History 125/80 Physical Exam Vital Signs: Vital Signs: Last Vital Signs Temp 98.4 F 08/22/24 19:21 Pulse 83 08/22/24 19:21 Resp 18 08/22/24 19:21 BP 154/90 H 08/22/24 19:21 Pulse Ox 98 08/22/24 19:21 O2 Del Method Room Air 08/22/24 19:21 BMI result Body Mass Index 30.5 Const: Other: Not toxic looking General: comfortable and no acute distress Orientation/consciousness: patient oriented x3 Neck: Neck: Yes no lymphadenopathy Resp: Auscultation: clear to auscultation bilaterally Cardio: Rhythm: regular rhythm GI: Other: Supraumbilical hernia, tender to touch, firm, with a mass about 5 cm in diameter, non reducible He has a large chronic hernia on the right side of his abdomen which is nontender and unchanged from his baseline Palpation (GI): Soft to palpation, nontender and no guarding Neuro: General: patient oriented x3 Results Results Labs: Short CBC 08/22/24 Range/Units 19:38 WBC 12.3 H (4.8-10.8) X10*3/uL Hgb 15.8 (14.0-18.0) g/dl Hct 43.0 (42.0-52.0) % Plt Count 254 (160-400) X10*3/uL BMP 08/22/24 19:38 Sodium 137 Potassium 3.7 Chloride 102 Carbon Dioxide 23 BUN 11 Creatinine 1.15 Calcium 9.6 D Liver Function 08/22/24 Range/Units 19:38 Total Bilirubin 0.5 (0.0-1.0) mg/dL AST 24 (5-37) U/L ALT 24 (0-40) U/L Alkaline Phosphatase 153 H (39-117) U/L Albumin 4.4 (3.5-5.0) g/dL Abdomen CT scan report/results: report reviewed and image reviewed CT scan - pelvis: report reviewed and image reviewed Additional studies: Laboratory Results WBC 12.3 X10*3/uL (4.8-10.8) H 08/22/24 19:38 RBC 5.34 X10*6/uL (4.60-5.80) 08/22/24 19:38 Hgb 15.8 g/dl (14.0-18.0) 08/22/24 19:38 Hct 43.0 % (42.0-52.0) 08/22/24 19:38 MCV 80.5 fL (80.0-98.0) 08/22/24 19:38 MCH 29.6 pg (27.0-33.0) 08/22/24 19:38 MCHC 36.7 g/dl (31.0-36.0) H 08/22/24 19:38 RDW 12.8 % (11.0-16.0) 08/22/24 19:38 Plt Count 254 X10*3/uL (160-400) 08/22/24 19:38 MPV 9.0 fL (9.4-12.4) L 08/22/24 19:38 Immature Gran % (Auto) 0.3 % (0.0-0.4) 08/22/24 19:38 Neut % (Auto) 76.7 % (45-73) H 08/22/24 19:38 Lymph % (Auto) 17.4 % (20-40) L 08/22/24 19:38 [place] % (Auto) 2.7 % (2-11) 08/22/24 19:38 Eos % (Auto) 2.7 % (0-4) 08/22/24 19:38 Baso % (Auto) 0.2 % (0-2) 08/22/24 19:38 Lymph # (Auto) 2.1 X10*3/uL (1.2-4.9) 08/22/24 19:38 [place] # (Auto) 0.3 X10*3/uL (0.1-1.2) 08/22/24 19:38 Eos # (Auto) 0.3 X10*3/uL (0.0-0.4) 08/22/24 19:38 Baso # (Auto) 0.0 X10*3/uL (0.0-0.2) 08/22/24 19:38 Abs Immat Gran (auto) 0.04 X10*3/uL (0.00-0.03) H 08/22/24 19:38 Absolute Neuts (auto) 9.4 x10*3/uL (2.0-8.3) H 08/22/24 19:38 Absolute Nucleated RBC 0.000 X10*3/uL (0.0-0.012) 08/22/24 19:38 Nucleated RBC % (auto) 0.0 /100WBC (0.0-0.2) 08/22/24 19:38 PT 11.2 SEC (10.9-12.4) 08/22/24 19:38 INR 1.0 (0.9-1.1) 08/22/24 19:38 Sodium 137 mmol/L (135-145) 08/22/24 19:38 Potassium 3.7 mmol/L (3.3-5.1) 08/22/24 19:38 Chloride 102 mmol/L (96-108) 08/22/24 19:38 Carbon Dioxide 23 mmol/L (22-29) 08/22/24 19:38 Anion Gap 16 (12-20) 08/22/24 19:38 BUN 11 mg/dL (9-16) 08/22/24 19:38 Creatinine 1.15 mg/dL (0.5-1.4) 08/22/24 19:38 Estim Creat Clear Calc 85.8 08/22/24 19:38 Estimated GFR > 60 08/22/24 19:38 Random Glucose 160 mg/dL (60-115) H 08/22/24 19:38 Lactic Acid 1.0 mmol/L (0.5-2.0) 08/22/24 22:21 Calcium 9.6 mg/dL (8.4-10.2) D 08/22/24 19:38 Total Bilirubin 0.5 mg/dL (0.0-1.0) 08/22/24 19:38 AST 24 U/L (5-37) 08/22/24 19:38 ALT 24 U/L (0-40) 08/22/24 19:38 Alkaline Phosphatase 153 U/L (39-117) H 08/22/24 19:38 Total Protein 8.1 g/dL (6.5-8.0) H 08/22/24 19:38 Albumin 4.4 g/dL (3.5-5.0) 08/22/24 19:38 Assessment and Plan (1) Incarcerated ventral hernia: Status: Acute He has an incarcerated supraumbilical hernia. I have reviewed his CAT scan. This contains small bowel loops with decompression distally and dilation proximally consistent with some degree of obstruction. The fascial defect measures around 3.7 cm. He does describe new onset pain in the area. I therefore explained to him it may be best to proceed with repair of this hernia in view of suggestion of acute obstruction. I explained the technique of this procedure with possible mesh placement. He understands the risk of strangulation of this bowel loop with non repair. I reviewed the risks of surgery including but not limited to bleeding, infections, bowel injury, recurrence, postop pain, as well as the benefits and alternatives he has given consent He understands that we are not repairing the much larger hernia and right-sided was abdomen. This hernia contains bowel loops as well which were non obstructed. He says that he has had this hernia since his liver transplant and I discomfort is as baseline. His CAT scan suggests loss of the main with this right-sided hernias so repair we will be more complex. He has a good understanding of the plan as above. He is on immunosuppression with tacrolimus. Quality Stroke Does the patient have a stroke diagnosis?: No VTE Prior VTE?: No VTE Risk Level:: Medical - moderate - high VTE Device Contraindication: N/A - Device Ordered VTE Drug Contraindication: N/A - Med Ordered Procedures Date of Service Date of Service: 08/25/24
--- NOTE | 2024-08-23 02:41 | P.OP_ITS ---
Operative Note Operative Note Date of Service: 08/23/24 Narrative: Preop diagnosis: Incarcerated supraumbilical hernia, with small bowel loops, obstruction on CT scan Postop diagnosis: The same Procedure: Repair of incarcerated supraumbilical hernia with reduction of incarcerated small bowel loop Surgeon: Carlos Lee MD FINDINGS: Large amount of incarcerated omentum and short segment of small bowel loop; small bowel loop appeared initially dusky but pinked up and appeared viable; fascial defect was about 4 cm but immediately superior and adjacent to this was note of Kittitian-cheese fascia which I connected with the hernia; the aggregate fascial defect therefore was about 7 cm long The patient is a 44-year-old male who had previously undergone a liver transplant in 2020. He had developed a large flank hernia on the incision immediately after his transplant. This contained bowel loops but were non obstructed. He developed a new hernia on the supraumbilical aspect for about 2 months now but this had become acutely tender today. He describes this is much firmer, painful and larger. His CAT scan showed small bowel loops large amount of omentum within the hernia with signs of obstruction. He understood the planned procedure as well as the risks, benefits, and alternatives He was brought to the operating room. He was placed supine under general anesthesia via endotracheal tube. The abdomen was prepped and draped in the usual sterile fashion. A surgical time-out was done. The patient received cefazolin 2 g IV preoperatively I infiltrated the planned line of incision with lidocaine 1%. I made an incision on the skin overlying this large hernia with a blade 15 on the midline longitudinally. This was extended carefully with electrocautery through the full-thickness of the skin subcutaneous fat until the hernia large sac was visualized. I bluntly dissected the hernia sac off of the rest of the surrounding subcutaneous layer down to the fascia. The fascial defect was tight around the hernia. I therefore extended the fascial defect by carefully dividing this with electrocautery. By doing so well I was able to loosen the hernia. I opened up the hernia sac with Metzenbaum scissors and entered the hernia itself. I exposed the entire hernia contents. This was very tight initially on the fascial defect. There was large amounts of omentum. There was herniated small bowel loop which was a short segment. Initially, this appeared dusky but after the fascia was loosened, this pinked up and appeared viable. We are able to reduce all of these hernia contents into the abdominal cavity. I applied Donald clamps on the fascial edges. I examined the underside. There was note of adherent omentum surrounding this which we carefully lysed with blunt dissection. There was note of some oozing from the vessels in the omentum which appeared to be engorged likely from his history of liver cirrhosis. I ligated all oozing areas with Polysorb 3-0 ties and Polysorb 2-0 ties. I then examined the omentum carefully. There was note of good hemostasis thereafter. Once hemostasis was confirmed, I re-examined the small bowel loops which was involved with the hernia earlier. Again this appeared very viable without any evidence of ongoing ischemia. The fascia superior and adjacent to the hernia defect had a Kittitian-cheese consistency so I connected this with the fascial defect itself. I then closed this entire divided fascia with a running Maxon 1 stitch I copiously irrigated the thick subcutaneous fat. Skin closure was achieved with skin niels. I infiltrated the area with Marcaine 0.5% for postop analgesia. Dressings were applied. The procedure was completed The patient tolerated the procedure well. There were no immediate complications. Initial and final counts of sponges and instruments were correct. Estimated blood loss was about 50 cc The patient was extubated without difficulty and transferred to the recovery room with stable vital signs.
--- NOTE | 2024-08-23 02:52 | HO.ANESPROP2 ---
[facility] Active Problems Active Problems: All Active Problems Incarcerated ventral hernia (Acute) History of alcohol abuse (Acute) Incarcerated umbilical hernia (Acute) Incisional hernia (Acute) Immunosuppression (Acute) Liver cirrhosis (Acute) Hyponatremia (Acute) Jaundice (Acute) Hyperbilirubinemia (Acute) Hyperammonemia (Acute) Alcohol abuse (Acute) Acute liver failure (Acute) Past Medical History Medical History (Updated 08/23/24 @ 00:31 by Carlos Lee MD) Incarcerated ventral hernia History of alcohol abuse Incisional hernia Immunosuppression Liver cirrhosis Family History Family history of problems with anesthesia: No Surgical History Surgical History Hx of surgical procedure (~2019) Social History Social History Household Members: Family Housing: House Do you presently have visiting nurse or other home services: No Advance Directives: No Advance Directives Information Provided: No service: No Current occupational status: unemployed Meds Allergies Allergy/AdvReac Type Severity Reaction Status Date / Time Penicillins Allergy Swelling Verified 08/22/24 19:22 Active Medications: Current Medications Amlodipine Besylate (Amlodipine Besylate 10 Mg Tablet) 10 mg PO DAILY [facility]; Protocol Heparin Sodium (Porcine) (Heparin Sodium,Porcine 5,000 Unit/Ml Vial) 5,000 unit SUBCUT Q8H [facility] Acetaminophen (Ofirmev) 1,000 mg in 100 mls @ 400 mls/hr IV Q6H [facility] Stop: 08/23/24 20:59 Labetalol HCl (Labetalol Hcl 200 Mg Tablet) 400 mg PO BID [facility]; Protocol Morphine Sulfate (Morphine Sulfate 2 Mg/Ml Cartridge) 3 mg IVPUSH Q3H PRN; Protocol PRN Reason: Pain, Severe (Pain Scale 7-10) Oxycodone HCl (Oxycodone Hcl Immed Release 5 Mg Tablet) 10 mg PO Q4H PRN PRN Reason: Pain, Moderate(Pain Scale 4-6) Home Medications ?Medication ?Instructions ?Recorded ?Confirmed ?Last Taken ?Type acamprosate 333 mg tablet,delayed 666 mg PO TID 06/22/24 06/22/24 Unknown History release amlodipine 10 mg tablet 10 mg PO DAILY 06/22/24 06/22/24 Unknown History ergocalciferol (vitamin D2) 1,250 1,250 mcg PO QWEEK 06/22/24 06/22/24 Unknown History mcg (50,000 unit) capsule gabapentin 600 mg tablet 600 mg PO DAILY 06/22/24 06/22/24 Unknown History labetalol 200 mg tablet 400 mg PO BID 06/22/24 06/22/24 Unknown History lidocaine 5 % topical patch 1 patch topical DAILY 06/22/24 06/22/24 Unknown History melatonin 3 mg tablet mg PO 06/22/24 06/22/24 Unknown History multivitamin with folic acid 400 1 tab PO DAILY 06/22/24 06/22/24 Unknown History mcg tablet (Daily-Amaris (with folic acid)) tacrolimus 1 mg capsule, 2 mg PO BID 06/22/24 06/22/24 Unknown History immediate-release Exam Height,Weight and Vital Signs: Height 5 ft 6 in Weight 85.7 kg Last Vital Signs Temp 99.9 F 08/23/24 02:41 Pulse 101 H 08/23/24 02:50 Resp 16 08/23/24 02:50 BP 118/80 08/23/24 02:50 Pulse Ox 92 08/23/24 02:50 O2 Del Method Room Air 08/23/24 02:50 O2 Flow Rate 2 08/23/24 02:45 Pertinent Lab Results Pertinent Lab Results: Laboratory Tests 08/22/24 08/22/24 19:38 22:21 WBC 12.3 H RBC 5.34 Hgb 15.8 Hct 43.0 MCV 80.5 MCH 29.6 MCHC 36.7 H RDW 12.8 Plt Count 254 MPV 9.0 L Immature Gran % (Auto) 0.3 Neut % (Auto) 76.7 H Lymph % (Auto) 17.4 L [place] % (Auto) 2.7 Eos % (Auto) 2.7 Baso % (Auto) 0.2 Lymph # (Auto) 2.1 [place] # (Auto) 0.3 Eos # (Auto) 0.3 Baso # (Auto) 0.0 Abs Immat Gran (auto) 0.04 H Absolute Neuts (auto) 9.4 H Absolute Nucleated RBC 0.000 Nucleated RBC % (auto) 0.0 PT 11.2 INR 1.0 Sodium 137 Potassium 3.7 Chloride 102 Carbon Dioxide 23 Anion Gap 16 BUN 11 Creatinine 1.15 Estim Creat Clear Calc 85.8 Estimated GFR > 60 Random Glucose 160 H Lactic Acid 1.0 Calcium 9.6 D Total Bilirubin 0.5 AST 24 ALT 24 Alkaline Phosphatase 153 H Total Protein 8.1 H Albumin 4.4 Airway Mallampati Class: II TM Dist: >3cm Loose/Missing/Broken Teeth: Yes, Upper and Lower Assessment and Plan Assessment Anesthesia Assessment: Anesthesia Plan Discussed and Chart Reviewed Final Anesthetic Review Family History of Problems with Anesthesia: No NPO: Yes ASA Class: III Final Preanesthetic Review: No Changes in Pt Med Stat, Meds/Allgs Chart Reviewed, Consent Obtained/Reviewed and Anes Risks/Benef Reviewed Patient Risk: Intermediate Procedure Risk: Intermediate Anesthetic Plan Anesthetic Plan: GA Disposition: Standard PACU
[2024-08-23] MEDS: Acetaminophen 1,000 MG/100 ML PIGGYBACK 400 MG IV (03:07)
[2024-08-23] MEDS: Lactated Ringers 1,000 ML 80 ML IVCONT ×2 (04:25→16:30)
[2024-08-23] MEDS: oxyCODONE HCl Immed Release 5 MG TABLET 10 MG PO ×4 (04:32→20:47)
--- NOTE | 2024-08-23 06:30 | HO.PM.IMCN ---
History of Present Illness Data of Consult Service Date: 08/23/24 Requesting physician: Carlos Lee Primary Care Provider: Rigo Gamboa MD [facility] Reason for consult: medical consult Patient is a 44-year-old male with a past medical history significant for alcoholic cirrhosis status post liver transplant in 2020, now sober from alcohol, hypertension and history of type 2 diabetes with prior prednisone, no longer diabetic since stopping prednisone, she was recently status post repair of incarcerated supraumbilical hernia. He reports his abdominal pain is well-controlled and is not having any nausea or vomiting. He has been able to urinate. He denies any chest pain, shortness of breath, numbness or tingling. He has not been able to pass gas yet. He does have a prescription for gabapentin to take as needed for abdominal pain secondary to ?scar tissue. Review of Systems Constitutional: Constitutional: Denies chills, Denies fatigue, Denies fever(s) and Denies headache(s) Eyes: Eyes: Denies change in vision ENT: Denies headache(s), Denies nasal congestion, Denies nasal discharge and Denies sore throat Cardiovascular: Cardiovascular: Denies chest pain, Denies rapid heart rate, Denies leg edema and Denies dyspnea Respiratory: Respiratory: Denies chest congestion, Denies cough, Denies dyspnea and Denies wheezing Gastrointestinal: Gastrointestinal: Denies abdominal pain, Denies nausea and Denies vomiting Genitourinary: Genitourinary: Denies dysuria and Denies urinary frequency Musculoskeletal: Musculoskeletal: Denies myalgias Integumentary/Breasts: Skin/Breast: Denies rash Neurologic: Denies confusion and Denies headache(s) Psychiatric: Psychiatric: Denies confusion Endocrine: Endocrine: Denies fatigue Hematologic/Lymphatic: Hematologic/Lymphatic: Denies easy bleeding Allergic/Immunologic: Allergic/Immunologic: Denies wheezing [facility] Medical History Incarcerated ventral hernia History of alcohol abuse Incisional hernia Immunosuppression Liver cirrhosis Functional capacity: independent ambulation Surgical History (Updated 08/23/24 @ 06:38 by Rose Marie Hubbard PA-C) Hx of surgical procedure (~2019) Social History Household Members: Family Housing: House Do you presently have visiting nurse or other home services: No Patient Tobacco Use Status: Never used Tobacco Use of substances other than those prescribed or required for medical reasons: No Have you been hit, kicked, punched, or otherwise hurt by someone within the past year? If so, by whom?: No Do you feel safe in your current relationship?: Yes Is there a partner from a previous relationship who is making you feel unsafe now?: No Are you made to feel afraid or neglected: No Advance Directives: No Advance Directives Information Provided: No Do you have a plan to hurt others: No Plan Recently lost weight without trying: No How much weight loss: Not applicable Eating poorly because of decreased appetite: No Nutrition screen score: 0 Poor oral hygiene: No (dentures) service: No Current occupational status: unemployed Narrative: no etoh, drug use, or smoking. Meds Allergies Allergy/AdvReac Type Severity Reaction Status Date / Time Penicillins Allergy Swelling Verified 08/22/24 19:22 Active Medications: Current Medications Amlodipine Besylate (Amlodipine Besylate 10 Mg Tablet) 10 mg PO DAILY [facility]; Protocol Fentanyl (Fentanyl Citrate/Pf 100 Mcg/2 Ml Vial) 50 mcg IVPUSH Q5M PRN PRN Reason: Pain, Moderate to Severe (Pain Scale 4-10) Stop: 08/23/24 08:51 Heparin Sodium (Porcine) (Heparin Sodium,Porcine 5,000 Unit/Ml Vial) 5,000 unit SUBCUT Q8H [facility] Acetaminophen (Ofirmev) 1,000 mg in 100 mls @ 400 mls/hr IV Q6H [facility] Stop: 08/23/24 21:14 Last Infusion: 08/23/24 04:05 Dose: Infused Lactated Ringer's (Lr) 1,000 mls @ 80 mls/hr IVCONT .[id number] [facility] Last Admin: 08/23/24 04:25 Dose: 80 mls/hr Labetalol HCl (Labetalol Hcl 200 Mg Tablet) 400 mg PO BID [facility]; Protocol Morphine Sulfate (Morphine Sulfate 2 Mg/Ml Cartridge) 3 mg IVPUSH Q3H PRN; Protocol PRN Reason: Pain, Severe (Pain Scale 7-10) Naloxone HCl (Naloxone Hcl 0.4 Mg/Ml Vial) 0.04 mg IVPUSH Q5M PRN PRN Reason: Excessive sedation or RR < 8 Ondansetron HCl (Ondansetron Hcl 4 Mg/2 Ml Vial) 4 mg IVPUSH ONCE PRN PRN Reason: Nausea and Vomiting Stop: 08/23/24 08:51 Ondansetron HCl (Ondansetron Hcl 4 Mg/2 Ml Vial) 4 mg IVPUSH Q6H PRN PRN Reason: Nausea and Vomiting Oxycodone HCl (Oxycodone Hcl Immed Release 5 Mg Tablet) 10 mg PO Q4H PRN PRN Reason: Pain, Moderate(Pain Scale 4-6) Last Admin: 08/23/24 04:32 Dose: 10 mg Tacrolimus (Tacrolimus 1 Mg Capsule) 2 mg PO BID [facility] Home Medications ?Medication ?Instructions ?Recorded ?Confirmed ?Last Taken ?Type acamprosate 333 mg tablet,delayed 666 mg PO TID 06/22/24 06/22/24 Unknown History release amlodipine 10 mg tablet 10 mg PO DAILY 06/22/24 06/22/24 Unknown History ergocalciferol (vitamin D2) 1,250 1,250 mcg PO QWEEK 06/22/24 06/22/24 Unknown History mcg (50,000 unit) capsule gabapentin 600 mg tablet 600 mg PO DAILY 06/22/24 06/22/24 Unknown History labetalol 200 mg tablet 400 mg PO BID 06/22/24 06/22/24 Unknown History lidocaine 5 % topical patch 1 patch topical DAILY 06/22/24 06/22/24 Unknown History melatonin 3 mg tablet mg PO 06/22/24 06/22/24 Unknown History multivitamin with folic acid 400 1 tab PO DAILY 06/22/24 06/22/24 Unknown History mcg tablet (Daily-Amaris (with folic acid)) tacrolimus 1 mg capsule, 2 mg PO BID 06/22/24 06/22/24 Unknown History immediate-release Physical Exam Vital Signs and Narrative: Vital Signs: Last Vital Signs Temp 99.5 F 08/23/24 03:48 Pulse 102 H 08/23/24 03:48 Resp 16 08/23/24 04:00 BP 158/96 H 08/23/24 03:48 Pulse Ox 93 08/23/24 03:48 O2 Del Method Room Air 08/23/24 03:48 O2 Flow Rate 2 08/23/24 03:05 BMI result Body Mass Index 30.5 General: AOx3, no acute distress Resp: CTA bilaterally CVS: S1, S2, RRR GI: +BS Skin: Warm, dry Neuro: Cranial nerves II-XII grossly intact bilaterally. Motor grossly intact bilaterally Extremities: No LE edema Psych: Appropriate affect Const: General: No confusion Orientation/consciousness: No confusion Neuro: General: No confusion Results Labs 08/22/24 19:38 08/22/24 19:38 Labs: Laboratory Results - last 24 hr 08/22/24 08/22/24 19:38 22:21 MCV 80.5 MCH 29.6 MCHC 36.7 H RDW 12.8 Plt Count 254 MPV 9.0 L Immature Gran % (Auto) 0.3 Neut % (Auto) 76.7 H Lymph % (Auto) 17.4 L [place] % (Auto) 2.7 Eos % (Auto) 2.7 Baso % (Auto) 0.2 Lymph # (Auto) 2.1 [place] # (Auto) 0.3 Eos # (Auto) 0.3 Baso # (Auto) 0.0 Abs Immat Gran (auto) 0.04 H Absolute Neuts (auto) 9.4 H Absolute Nucleated RBC 0.000 Nucleated RBC % (auto) 0.0 PT 11.2 INR 1.0 Anion Gap 16 Estim Creat Clear Calc 85.8 Estimated GFR > 60 Random Glucose 160 H Lactic Acid 1.0 Calcium 9.6 D Total Bilirubin 0.5 AST 24 ALT 24 Alkaline Phosphatase 153 H Total Protein 8.1 H Albumin 4.4 Assessment and Plan (1) Status post hernia repair: Status: Acute Plan Patient is a 44-year-old male with a past medical history significant for alcoholic cirrhosis status post liver transplant in 2020, now sober from alcohol, hypertension and history of type 2 diabetes with prior prednisone, no longer diabetic since stopping prednisone, she was recently status post repair of incarcerated supraumbilical hernia, consulted for general medical care. S/p incarcerated supraumbilical hernia repair - plan per surgery - pain well managed - able to urinate, has not yet passed gas, surgery only 4 hours ago S/p liver transplant due to alcoholic cirrhosis - continue tacrolimus - patient is sober from alcohol since transplant HTN - continue amlodipine daily and labetalol as needed (per pt current rx) History type 2 diabetes - patient reports he has not needed any medication since getting off of prednisone - check hemoglobin A1c, add sliding scale insulin if needed Thank you for allowing me to participate in the pt's care. Signing off for now. Please contact the medical team if any questions or concerns.
[2024-08-23 06:57] LABS: Estimated Average Glucose 100 mg/dL; Hemoglobin A1C 126.0486 umol/L; Hemoglobin A1c % 5.1 % (<6.0); Total Hemoglobin (HGBA1C) 3960.1425 umol/L
[2024-08-23] MEDS: Labetalol HCL 200 MG TABLET 400 MG PO ×2 (08:16→20:46)
--- NOTE | 2024-08-23 08:28 | P.PNGS_ITS ---
Subjective Subjective Date of Service: 08/23/24 Interval history: Pod 0 following repair of an incarcerated supraumbilical hernia without mesh. The patient reports feeling much more comfortable this morning but does have some incisional pain. Physical Exam 2 Vital Signs: Vital Signs: Last Vital Signs Temp 97.9 F 08/23/24 07:50 Pulse 103 H 08/23/24 07:50 Resp 16 08/23/24 07:50 BP 121/75 08/23/24 07:50 Pulse Ox 93 08/23/24 07:50 O2 Del Method Nasal Cannula 08/23/24 07:50 O2 Flow Rate 2 08/23/24 07:50 BMI result Body Mass Index 30.5 Const: General: no acute distress Nutritional Appearance: well nourished Orientation/consciousness: patient oriented x3 Resp: Effort & Inspection: normal respiratory effort, no audible wheezes, no cough and no respiratory distress GI: Other: Abdominal dressings are clean, dry and intact. Abdomen is flat Skin: Other: Warm, dry, no rash Neuro: General: patient oriented x3 Objective Data Active Medications Amlodipine Besylate (Amlodipine Besylate 10 Mg Tablet) 10 mg PO DAILY [facility]; Protocol Last Admin: 08/23/24 08:16 Dose: Not Given Documented By: LYUDMILA Non-Admin Reason: Off Unit: Surgery Fentanyl (Fentanyl Citrate/Pf 100 Mcg/2 Ml Vial) 50 mcg IVPUSH Q5M PRN PRN Reason: Pain, Moderate to Severe (Pain Scale 4-10) Stop: 08/23/24 08:51 Heparin Sodium (Porcine) (Heparin Sodium,Porcine 5,000 Unit/Ml Vial) 5,000 unit SUBCUT Q8H [facility] Acetaminophen (Ofirmev) 1,000 mg in 100 mls @ 400 mls/hr IV Q6H [facility] Stop: 08/23/24 21:14 Last Admin: 08/23/24 08:09 Dose: Not Given Documented By: LYUDMILA Non-Admin Reason: Patient Refused Lactated Ringer's (Lr) 1,000 mls @ 80 mls/hr IVCONT .[id number] [facility] Last Admin: 08/23/24 04:25 Dose: 80 mls/hr Documented By: NATALI Labetalol HCl (Labetalol Hcl 200 Mg Tablet) 400 mg PO BID [facility]; Protocol Last Admin: 08/23/24 08:16 Dose: 400 mg Documented By: LYUDMILA Morphine Sulfate (Morphine Sulfate 2 Mg/Ml Cartridge) 3 mg IVPUSH Q3H PRN; Protocol PRN Reason: Pain, Severe (Pain Scale 7-10) Naloxone HCl (Naloxone Hcl 0.4 Mg/Ml Vial) 0.04 mg IVPUSH Q5M PRN PRN Reason: Excessive sedation or RR < 8 Ondansetron HCl (Ondansetron Hcl 4 Mg/2 Ml Vial) 4 mg IVPUSH ONCE PRN PRN Reason: Nausea and Vomiting Stop: 08/23/24 08:51 Ondansetron HCl (Ondansetron Hcl 4 Mg/2 Ml Vial) 4 mg IVPUSH Q6H PRN PRN Reason: Nausea and Vomiting Oxycodone HCl (Oxycodone Hcl Immed Release 5 Mg Tablet) 10 mg PO Q4H PRN PRN Reason: Pain, Moderate(Pain Scale 4-6) Last Admin: 08/23/24 04:32 Dose: 10 mg Documented By: NATALI Tacrolimus (Tacrolimus 1 Mg Capsule) 2 mg PO BID [facility] Labs 08/22/24 19:38 08/22/24 19:38 Labs: Laboratory Results - last 24 hr 08/22/24 08/22/24 19:38 22:21 MCV 80.5 MCH 29.6 MCHC 36.7 H RDW 12.8 Plt Count 254 MPV 9.0 L Immature Gran % (Auto) 0.3 Neut % (Auto) 76.7 H Lymph % (Auto) 17.4 L [place] % (Auto) 2.7 Eos % (Auto) 2.7 Baso % (Auto) 0.2 Lymph # (Auto) 2.1 [place] # (Auto) 0.3 Eos # (Auto) 0.3 Baso # (Auto) 0.0 Abs Immat Gran (auto) 0.04 H Absolute Neuts (auto) 9.4 H Absolute Nucleated RBC 0.000 Nucleated RBC % (auto) 0.0 PT 11.2 INR 1.0 Anion Gap 16 Estim Creat Clear Calc 85.8 Estimated GFR > 60 Random Glucose 160 H Estimat Average Glucose 100 Hemoglobin A1c % 5.1 Lactic Acid 1.0 Calcium 9.6 D Total Bilirubin 0.5 AST 24 ALT 24 Alkaline Phosphatase 153 H Total Protein 8.1 H Albumin 4.4 Procedures Date of Service Date of Service: 08/23/24 Progress Note: A&P Assessment and plan (1) Incarcerated ventral hernia: Status: Acute (2) Status post hernia repair: Status: Acute Plan 44-year-old male patient status post repair of an incisional hernia with incarceration. Patient tolerated the procedure well and remains hemodynamically stable on postoperative day 0. Patient currently on clear liquid diet but has not any p.o. yet. We will continue with clear liquids for now. Time Spent With Patient Time: Total time managing care of this patient today ____ minutes. Quality Stroke Does the patient have a stroke diagnosis?: No VTE Prior VTE?: No VTE Risk Level:: Surgical - moderate VTE Device Contraindication: N/A - Device Ordered VTE Drug Contraindication: N/A - Med Ordered
[2024-08-23] MEDS: Tacrolimus 1 MG CAPSULE 2 MG PO ×2 (08:56→20:46)
--- NOTE | 2024-08-23 09:07 | PHA.MEDREC ---
Addendum entered by Irene Li [facility] 08/23/24 09:09: patient also states he was taking gabapentin 600 mg at bedtime for scar pain however patient feels minimal relief, patient confirmed to no longer be taking it Original Note: Pharmacy Consult ? Medication Reconciliation Pharmacy has completed the medication reconciliation. Spoke with patient, patient confirmed he is prescribed labetolol 400 mg BID however he takes 400 mg in the morning and takes the PM does as a PRN for a BP range of 125/80 angel . Patient also mentioned hes on Ambien 5 mg at bedtime, however PDMP shows no history of Ambien.
[2024-08-23] MEDS: Heparin Sodium,Porcine 5,000 UNIT/ML VIAL 5000 UNIT SUBCUT ×2 (09:28→17:59)
[2024-08-24 03:20] VITALS: BP 125/70; PULSE 81; RESP 16; TEMP 36.4; O2SAT 93
[2024-08-24] MEDS: Lactated Ringers 1,000 ML 80 ML IVCONT (03:20)
[2024-08-24] MEDS: Heparin Sodium,Porcine 5,000 UNIT/ML VIAL 5000 UNIT SUBCUT ×2 (03:20→09:04)
[2024-08-24] MEDS: oxyCODONE HCl Immed Release 5 MG TABLET 10 MG PO ×3 (06:00→14:10)
[2024-08-24 07:35] VITALS: BP 128/79; PULSE 89; RESP 16; TEMP 36.2; O2SAT 95
--- NOTE | 2024-08-24 07:54 | PM.PNGS ---
Subjective Subjective Date of Service: 08/24/24 <Mariposa Wu PA-C - Last Filed: 08/24/24 07:57> 08/24/24 <Carlos Lee MD - Last Filed: 08/24/24 08:06> Interval history: He is OOB and ambulating without difficulty. Passing flatus. Tolerating clear liquids without nausea or vomiting. Feels hungry. Pain fairly well controlled but still using IV analgesics. <Mariposa Wu PA-C - Last Filed: 08/24/24 07:57> Physical Exam Vital Signs: Vital Signs: Last Vital Signs Temp 97.1 F 08/24/24 07:35 Pulse 89 08/24/24 07:35 Resp 16 08/24/24 07:35 BP 128/79 08/24/24 07:35 Pulse Ox 95 08/24/24 07:35 O2 Del Method Room Air 08/24/24 07:35 O2 Flow Rate 2 08/23/24 07:50 BMI result Body Mass Index 30.5 <Mariposa Wu PA-C - Last Filed: 08/24/24 07:57> Const: General: comfortable, no acute distress and alert <AMMON Martinez Last Filed: 08/24/24 07:57> Orientation/consciousness: patient oriented x3 <AMMON Martinez Last Filed: 08/24/24 07:57> Resp: Effort & Inspection: normal respiratory effort <AMMON Martinez Last Filed: 08/24/24 07:57> GI: Inspection: Yes incision (clean) and Yes visible herniation (right lateral ) <Mariposa Wu PA-C - Last Filed: 08/24/24 07:57> Palpation (GI): Soft to palpation, Tenderness to palpation present (GI) (mild incisional) and no guarding <AMMON Martinez Last Filed: 08/24/24 07:57> Skin: General skin exam: no rashes or lesions noted <AMMON Martinez Last Filed: 08/24/24 07:57> Neuro: General: patient oriented x3 and moves all extremities <AMMON Martinez Last Filed: 08/24/24 07:57> Objective Data Active Medications Amlodipine Besylate (Amlodipine Besylate 10 Mg Tablet) 10 mg PO DAILY [facility]; Protocol Last Admin: 08/23/24 08:16 Dose: Not Given Documented By: LYUDMILA Non-Admin Reason: Off Unit: Surgery Heparin Sodium (Porcine) (Heparin Sodium,Porcine 5,000 Unit/Ml Vial) 5,000 unit SUBCUT Q8H [facility] Last Admin: 08/24/24 03:20 Dose: 5,000 unit Documented By: JOSE Lactated Ringer's (Lr) 1,000 mls @ 80 mls/hr IVCONT .[id number] [facility] Last Admin: 08/24/24 03:20 Dose: 80 mls/hr Documented By: JOSE Labetalol HCl (Labetalol Hcl 200 Mg Tablet) 400 mg PO BID [facility]; Protocol Last Admin: 08/23/24 20:46 Dose: 400 mg Documented By: JOSE Morphine Sulfate (Morphine Sulfate 2 Mg/Ml Cartridge) 3 mg IVPUSH Q3H PRN; Protocol PRN Reason: Pain, Severe (Pain Scale 7-10) Naloxone HCl (Naloxone Hcl 0.4 Mg/Ml Vial) 0.04 mg IVPUSH Q5M PRN PRN Reason: Excessive sedation or RR < 8 Ondansetron HCl (Ondansetron Hcl 4 Mg/2 Ml Vial) 4 mg IVPUSH Q6H PRN PRN Reason: Nausea and Vomiting Oxycodone HCl (Oxycodone Hcl Immed Release 5 Mg Tablet) 10 mg PO Q4H PRN PRN Reason: Pain, Moderate(Pain Scale 4-6) Last Admin: 08/24/24 06:00 Dose: 10 mg Documented By: JOSE Comments: given for pain 8/10 per pt request Tacrolimus (Tacrolimus 1 Mg Capsule) 2 mg PO BID [facility] Last Admin: 08/23/24 20:46 Dose: 2 mg Documented By: JOSE <Mariposa Wu PA-C - Last Filed: 08/24/24 07:57> Labs CBC & Chem 7: 08/22/24 19:38 08/22/24 19:38 <Mariposa Wu PA-C - Last Filed: 08/24/24 07:57> Procedures Date of Service Date of Service: 08/24/24 <Mariposa Wu PA-C - Last Filed: 08/24/24 07:57> 08/24/24 <Carlos Lee MD - Last Filed: 08/24/24 08:06> Progress Note: A&P Assessment and plan (1) Incarcerated ventral hernia: Status: Acute <Mariposa Wu PA-C - Last Filed: 08/24/24 07:57> Assessment and Plan: Feels well Tolerating liquids Denies significant pain Ambulating Abdomen is soft and benign Incision clean and dry Diet as tolerated Possible home today Seen and examined independently <Carlos Lee MD - Last Filed: 08/24/24 08:06> (2) Status post hernia repair: Status: Acute <Mariposa Wu PA-C - Last Filed: 08/24/24 07:57> Assessment and Plan: 44-year-old male patient POD #1 status post repair of an incisional hernia with incarceration. Doing well post op, good pain control. Abd exam benign with appropriate post op tenderness, clean incision. Will advance to solid diet. Continue to increase activity, IS use. Home when comfortable on oral analgesics. <Mariposa Wu PA-C - Last Filed: 08/24/24 07:57> Time Spent With Patient Time: Total time managing care of this patient today ____ minutes. <Mariposa uW PA-C - Last Filed: 08/24/24 07:57> Quality Stroke Does the patient have a stroke diagnosis?: No <Mariposa Wu PA-C - Last Filed: 08/24/24 07:57> VTE Prior VTE?: No <Mariposa uW PA-C - Last Filed: 08/24/24 07:57> VTE Risk Level:: Surgical - moderate <Mariposa Wu PA-C - Last Filed: 08/24/24 07:57> VTE Device Contraindication: N/A - Device Ordered <AMMON Martinez Last Filed: 08/24/24 07:57> VTE Drug Contraindication: N/A - Med Ordered <Mariposa Wu PA-C - Last Filed: 08/24/24 07:57>
--- NOTE | 2024-08-24 08:30 | HO.POSTANES ---
Post Anesthesia Evaluation Post Anesthesia Evaluation Date of Service: 08/24/24 Vital Signs: Vital Signs Temp Pulse Resp BP Pulse Ox O2 Del Method 08/24/24 07:35 97.1 F 89 16 128/79 95 Room Air 08/24/24 03:20 97.6 F 81 16 125/70 93 Room Air 08/24/24 02:51 Room Air Anesthesia: General Endotracheal-GETA Mental Status: Awake Pain Control: Satisfactory Nausea/Vomiting: None Hydration: Adequate Anesthesia-Related Issues: No Anes. Related Issues
[2024-08-24] MEDS: Tacrolimus 1 MG CAPSULE 2 MG PO (09:04)
[2024-08-24] MEDS: amLODIPine Besylate 10 MG TABLET PO (09:05)
[2024-08-24] MEDS: Labetalol HCL 200 MG TABLET 400 MG PO (09:08)
--- NOTE | 2024-08-24 09:17 | PC.NURSE ---
Pt bp was 128/79. amlodipine 1omg and labetolol 400mg are scheduled. Contacted MD regarding schudlued blood pressure emds. Pt states he only take 1 tablet of labetolol = to 200mg when his systolic pressure is below 140. MD approved to give 200mg dose vs. 400mg ordered dose
--- NOTE | 2024-08-24 09:45 | MHC.CM.PN ---
Addendum entered by Kay Jones 08/24/24 15:51: DP: PT HAS BEEN MEDICALLY CLEARED FOR DC HOME, NO SERVICES. PT HAS OWN RIDE HOME Addendum entered by Kay Jones 08/24/24 09:47: DP: HOME, NO SERVICES IS THE GOAL. PT HAS OWN RIDE HOME. CM WILL CONTINUE TO FOLLOW FOR ANY CHANGE TO DC PLAN/NEEDS. Original Note: CM MET WITH PT AT BEDSIDE. PT LIVES WITH PARENTS AND IS FUNCTIONALLY INDEPENDENT. PT DECLINES COMPLETING A HCP AT THIS TIME. PCP DR. AVRIL NICOLAS
--- NOTE | 2024-08-24 10:14 | PM.DS ---
DS: Providers Provider Date of Service: 08/24/24 Date of admission: 08/23/24 00:06 Date of discharge: 08/24/24 Primary care physician: Rigo Gamboa MD Attending physician on admission: Carlos Lee Consults: 08/23/24 02:38 Consult to Hospitalist Routine Comment: Consulting Provider: [facility] Hospitalists Reason For Exam: S/P liver transplant, on immunosuppressant, HTN Attending physician on discharge: Carlos Lee DS: Diagnosis Discharge Diagnosis (1) Incarcerated ventral hernia: Status: Acute DS: Summary Hospital Course Hospital Course: HPI AT ADMISSION: David Cee is a 44 year old male here in the ER for pain on the supraumbilical area. He has noted this mass on the supra umbilical area for about 2 months now. He says that despite some discomfort, this did not really cause any pain. However, starting at around 04:00 o'clock this afternoon, he has been noticing significant pain and tenderness on the area. He describes enausea without any vomiting. He says he feels a little bloated. He also says that the hernia on the supraumbilical area has been much firmer and bigger the past few hours. He is also known to have a large hernia on the right flank area after liver transplant. 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 He had been doing well since that time. However for the past year and a half, he has been noticing this mass on the right side of his abdomen along his old incision. This had increased in size significantly over the past few months and has been causing pain as well for several months now. He says that this is not what is bothering him today. He denies GI complaints. He says he is feeling well overall. He does have chronic pain from the large hernia which is has his usual baseline. He remains on tacrolimus for immunosuppression after his transplant. He says that he no longer on prednisone. CAT scan shows the supraumbilical hernia containing small bowel loops with decompression distally and dilation proximally consistent with some degree of obstruction. The fascial defect measures around 3.7 cm. He does describe new onset pain in the area. HOSPITAL COURSE: He was admitted to the surgical service for further treatment of the hernia. It was recommended proceed with repair of this hernia in view of suggestion of acute obstruction. He understood that we were not repairing the much larger hernia on the right-side of the abdomen, which contained bowel loops as well which were non obstructed. On 08/23/23, repair of incarcerated supraumbilical hernia with reduction of incarcerated small bowel loop was performed by Dr. Lee without complication. He was found to have a large amount of incarcerated omentum and short segment of small bowel loop which was viable appearing. The following day he felt well with good pain control. He was tolerating clear liquids and was advanced to a solid diet. He was hemodynamically stable and his abdomen was benign with clean incision and appropriate post op tenderness. He was reassessed later and was tolerating a solid diet, ambulating without difficulty, and pain remained mild. He was passing flatus. He was discharged to home on 08/24/24 in stable condition. He is to follow up in the office in 2 weeks. Status at Discharge Functional status at discharge: independent ambulation Overall status at discharge: patient is progressing back to baseline Time Attestation Discharge Coordination Time (in mins): 35 Quality: Safe Use of Opioids Does Pt have an Active Cancer Diagnosis on the Problem List?: No Quality: Stroke Does the patient have a stroke diagnosis?: No Physical Exam Vital Signs: Vital Signs: Last Vital Signs Temp 97.6 F 08/24/24 15:58 Pulse 70 08/24/24 15:58 Resp 16 08/24/24 15:58 BP 112/71 08/24/24 15:58 Pulse Ox 92 08/24/24 15:58 O2 Del Method Room Air 08/24/24 15:58 O2 Flow Rate 2 08/23/24 07:50 BMI result Body Mass Index 30.5 Const: General: comfortable, no acute distress and alert Orientation/consciousness: patient oriented x3 Resp: Effort & Inspection: normal respiratory effort GI: Other: large, soft right sided hernia Inspection: No distended and Yes incision (clean) Palpation (GI): Soft to palpation, Tenderness to palpation present (GI) (mild incisional) and no guarding Skin: General skin exam: no rashes or lesions noted Neuro: General: patient oriented x3 and moves all extremities DS: Data Data Completed and Pending Completed studies during hospitalization [Text1]: Procedures Drainage of Peritoneal Cavity, Percutaneous Approach (11/26/20) Discharge Plan Discharge Anticipated Discharge Date/Time: 08/24/24 15:25 Patient Disposition: Home, Self-Care Discharge Diagnosis: Incarcerated supraumbilical hernia Referrals: Carlos Lee MD [Emergency Provider] - 2 Weeks Rigo Gamboa MD [Primary Care Provider] - 1 Week Discharge Medications: New oxycodone 5 mg tablet 5 mg PO Q4H PRN (Reason: pain) Qty: 20 0RF Rx Instructions: Partial Fill upon patient request. Continued folic acid 1 mg Tablet 1 mg PO DAILY 10 Days Qty: 10 0RF labetalol 200 mg tablet 400 mg PO BEDTIME PRN (Reason: BP range of 125/80) multivitamin with folic acid [Daily-[employer] (with folic acid)] 400 mcg tablet 1 tab PO DAILY tacrolimus 1 mg capsule 2 mg PO BID melatonin 3 mg tablet 6 mg PO BEDTIME labetalol 200 mg tablet 400 mg PO DAILY ergocalciferol (vitamin D2) 1,250 mcg (50,000 unit) capsule 1,250 mcg PO WE amlodipine 10 mg tablet 10 mg PO DAILY Discharge Orders: Discharge Order (Routine); Ordered 08/24/24 Ordered By: Carlos Lee Diet: Advance to usual diet Activity on Discharge: No heavy lifting Stand Alone Forms: Patient Portal Discharge page Print Language: Niuean Activity Restrictions/Additional Instructions: If the incision area is tender, you may apply an ice pack for short intervals (No more than 20 minutes on, followed by at least 20 minutes off). Do not apply heat. Do not use creams, lotions, or topical antibiotics unless instructed to do so by your surgeon. These can cause infection or allergic reaction. No lifting more than 20 lbs Okay to shower No strenuous activities Call the office for follow-up in 2 weeks - with Dr. Lee Call Your Doctor If: -Your temperature exceeds 101.5? F -You experience excessive pain or swelling -You have an unexpected reaction to medication -You have excessive bleeding -You experience continued vomiting/nausea -Your incision begins to separate -Your incision shows signs of infection such as increased redness, swelling, excessive pain, drainage (light blood or clear fluid is normal) or heat Care Plan Goals: Returned to baseline Health Concerns: Postop pain Plan of Treatment: Oral pain meds Assessment: Doing well Discharge Date/Time: 08/24/24 16:04
--- NOTE | 2024-08-24 15:29 | PM.EVENT ---
Event Note Date of Service: 08/24/24 Event Note: Tolerating regular diet Continues to feel well Denies significant pain Abdomen is soft and benign Okay to DC home Instructions reinforced Time Spent With Patient Time: Total time managing care of this patient today ____ minutes.
[2024-08-24 15:58] VITALS: BP 112/71; PULSE 70; RESP 16; TEMP 36.4; O2SAT 92
== END 2024-08-24 16:04 | disposition home or self-care (01) | DRG 227 ==
LOC: HO.ED 08-23 00:04 → HO.SSSA 08-23 01:10 → HO.S3 08-24 10:59 → HO.ED 08-24 12:55 → HO.S3 08-24 12:55 → HO.SSSA 08-24 12:55
PROVIDERS: Internal Medicine; Physician Assistant; Registered Nurse Emergency; Admitting Provider Surgery; Emergency Provider Surgery; PCP Internal Medicine; Visit Provider Surgery
PROC: 0WQF0ZZ Repair Abdominal Wall, Open Approach (ICD-10-PCS; principal; 2024-08-23 00:45)
DX: K43.6 Other and unspecified ventral hernia with obstruction, without gangrene (principal); D84.821 Immunodeficiency due to drugs; F10.21 Alcohol dependence, in remission; Z94.4 Liver transplant status; Z79.621 Long term (current) use of calcineurin inhibitor; Z79.899 Other long term (current) drug therapy
CPT/HCPCS: 36415; 74177; 76705; 80053; 83036; 83605; 85025; 85610; 99285; J0131; J0690; J1100; J1644; J2003; J2250; J2270; J2405; J2704; J2795; J3010; J7120; Q9967

== ENCOUNTER → 2024-08-23 00:06 | Outpatient (BNV) | payer OTHER, SELFPAY | PROVIDERS: Admitting Provider Surgery; Emergency Provider Internal Medicine; PCP Internal Medicine; Visit Provider Surgery | DX: K43.6 Other and unspecified ventral hernia with obstruction, without gangrene (principal) | CPT/HCPCS: 49594; 99024; 99222; 99239; 99499 ==

== ENCOUNTER → 2024-08-23 00:06 | Outpatient (BNV) | payer OTHER, SELFPAY | PROVIDERS: Admitting Provider Surgery; Emergency Provider Internal Medicine; PCP Internal Medicine; Visit Provider Physician Assistant | DX: K43.2 Incisional hernia without obstruction or gangrene (principal); I10 Essential (primary) hypertension | CPT/HCPCS: 99223 ==

== ENCOUNTER 2024-09-06 11:16 | Outpatient (AMB) | payer OTHER, SELFPAY ==
--- NOTE | 2024-09-06 11:18 | MHC.OFFVIS ---
Vital Signs 09/06/24 11:21 Height 5 ft 7 in Weight 185 lb 8 oz BMI 29.1 BP 127/69 Blood Pressure Location Rt brachial Position Sitting Pulse 70 Intake Visit Reasons: posr repair of incarcerated supraumbilical hernia Intake Note: This patient presents for post-op assessment status post Repair of incarcerated supraumbilical hernia with reduction of incarcerated small bowel loop. Pt c/o; no concerns. Health And Nutrition Specialist Required: No Accompanied by: Self / Same As Patient Allergies Penicillins Allergy (Verified 09/06/24 11:26) Swelling HPI HPI posr repair of incarcerated supraumbilical hernia: Details: He had undergone emergency repair of an incarcerated supraumbilical hernia last 08/23/2024. He was discharged on postop day number 2. He says he has been doing well although admits to some pain on the incision He has good oral intake He also has this large hernia on the right side of his abdomen from his liver transplant incision. [facility] Medical History Incarcerated ventral hernia History of alcohol abuse Incisional hernia Immunosuppression Liver cirrhosis Surgical History History of hernia repair (~08/23/24) Hx of surgical procedure (~2019) Social History Household Members: Family Housing: House Do you presently have visiting nurse or other home services: No Patient Tobacco Use Status: Never used Tobacco service: No Current occupational status: unemployed Review of Systems Const Denies chills and Denies fever(s) Resp Denies cough GI Denies vomiting Physical Exam Vital Signs: Last Vital Signs Pulse 70 09/06/24 11:21 BP 127/69 09/06/24 11:21 BMI result Body Mass Index 29.1 Const General: comfortable and no acute distress Resp Effort & Inspection: normal respiratory effort Cardio Rate: regular rate GI Other: Very Large hernia in the right flank area, chronically incarcerated Hernia repair site on the supraumbilical area well healed, clean, redness on 1 spot, niels in place Assessment & Plan Assessment & Plan (1) Incisional hernia: Code(s): K43.2 - Incisional hernia without obstruction or gangrene Category: Medical Plan: Status post repair of a supraumbilical hernia. The incisions well healed. I removed his skin niels He also has a large right flank hernia from his previous transplant incision. He says that he is trying to return to [facility] to have this repaired. He has had problems with his insurance. I told him that I would recommend going back to [facility] as this will be a complex repair in view of the size of the hernia with some loss of domain. Coding Level of Care Code Global (68543) Diagnoses Incisional hernia K43.2
[2024-09-06 11:21] VITALS: BP 127/69; PULSE 70; BMI 29.1
== END 2024-09-06 11:45 | disposition home or self-care (01) ==
PROVIDERS: PCP Internal Medicine; Visit Provider Surgery
DX: K43.2 Incisional hernia without obstruction or gangrene (principal)
CPT/HCPCS: 99212

== ENCOUNTER → 2024-09-06 11:16 | Outpatient (BNVA) | payer OTHER, SELFPAY | PROVIDERS: PCP Internal Medicine; Visit Provider Surgery | DX: K43.2 Incisional hernia without obstruction or gangrene (principal); Z48.815 Encounter for surgical aftercare following surgery on the digestive system; Z98.890 Other specified postprocedural states | CPT/HCPCS: 99212 ==